=== PATIENT | male | born 1960 | race Caucasian/White ===

== ENCOUNTER 2018-06-13 09:50 | Emergency (ER) | payer MEDICARE, OTHER ==
--- NOTE | 2018-06-13 11:01 | ED ---
Fall HPI - General Chief Complaint: Fall Stated Complaint: Fall Time Seen by Provider: 06/13/18 10:03 Source: EMS, RN notes reviewed Mode of arrival: EMS - History of Present Illness Initial Comments: this is a 57-year-old male past medical history developmental delays previous [place] and depression who presents today for chief complaint of fall with caregiver. psychiatry teacher states that around 8:45 AM this morning, he came out of the bedroom bleeding right above right eyebrow. They saw a trail from the night stand to the doorway, and when they asked pt if he hit head on nightstand he said yes. Pt is able to answer yes and no questions, however at baseline does not formulate complete sentences. Caregiver stated that he was acting normal, trying to put on his shoes to go to his program for the day. Pt denied LOC, chest pain, dizziness prior to fall, headache, current dizziness, visual changes , nausea, vomiting, pain with EOM, muscle weakness or loss of sensation of extremities. Caregiver states that his gait and speech are normal and she notes no behavioral changes. EMS was called patient arrived in stable condition with laceration of the right orbit. remainder ROS negative. Caregiver denies anticoagulation use or coagulopathies. - Related Data Home Medications Medication Instructions Recorded Confirmed Bisoprolol-Hctz 5-6.25 mg [Ziac 1 tab PO DAILY 06/13/18 06/13/18 5-6.25] Diphenox-Atrop 2.5-0.025 mg 1 tab PO DAILY PRN 06/13/18 06/13/18 [Lomotil] FLUoxetine HCL [PROzac] 20 mg PO DAILY 06/13/18 06/13/18 FLUoxetine HCL [PROzac] 40 mg PO DAILY 06/13/18 06/13/18 risperiDONE 1 mg PO BID 06/13/18 06/13/18 Allergies Allergy/AdvReac Type Severity Reaction Status Date / Time No Known Allergies Allergy Verified 06/13/18 10:16 Review of Systems ROS Statement: Those systems with pertinent positive or pertinent negative responses have been documented in the HPI. ROS Other: All systems not noted in ROS Statement are negative. Constitutional: Denies: fever, chills Eyes: Denies: eye pain, vision change ENT: Denies: throat pain Respiratory: Denies: cough, dyspnea, wheezes, hemoptysis, stridor Cardiovascular: Denies: chest pain, palpitations Gastrointestinal: Denies: abdominal pain, nausea, vomiting, diarrhea, constipation Genitourinary: Denies: dysuria Musculoskeletal: Denies: back pain (no neck pain) Skin: Reports: as per HPI, lesions Neurological: Denies: headache, weakness, numbness, paresthesias, confusion, abnormal gait, vertigo Past Medical History Past Medical History: Unable to Obtain Additional Past Medical History / Comment(s): [place], Developmental delay since , depression. Pt combative at times. History of Any Multi-Drug Resistant Organisms: None Reported Past Surgical History: Unable to Obtain Past Psychological History: No Psychological Hx Reported Smoking Status: Unknown if ever smoked Past Alcohol Use History: None Reported Past Drug Use History: None Reported General Exam - General Exam Comments Initial Comments: General: The patient is awake and alert, in no distress, and does not appear acutely ill. Eye: +2mm pupils are equal, round and reactive to light, extra-ocular movements are intact. EOM intact, pt denies pain with EOM. No nystagmus. No conjugate gaze. There is normal conjunctiva bilaterally. No signs of icterus. Ears, nose, mouth and throat: There are moist mucous membranes and no oral lesions. Neck: The neck is supple, there is no tenderness or JVD. No midlines or paravertebral tenderness to palpation. Cardiovascular: There is a regular rate and rhythm. No murmur, rub or gallop is appreciated. Respiratory: Lungs are clear to auscultation, respirations are non-labored, breath sounds are equal. No wheezes, stridor, rales, or rhonchi. Musculoskeletal: Normal ROM, no tenderness. Strength 5/5 UE and LE equally bilaterally. Sensation intact of upper extremities and lower extremities equally bilaterally. Pulses equal bilaterally 2+. Neurological: A&O x 3. CN II-XII intact, There are no obvious motor or sensory deficits. Coordination appears grossly intact. Speech is normal.gait without ataxia. Skin: Skin is warm and dry and no rashes. No evidence of contusion or hematoma over forehead/over right orbit. Large 9m linear laceration superior to right orbit, full thickness laceration, no distruption of under muscle tissue or exposure of skull. No active bleeding. Psychiatric: Cooperative,following verbal commands memory intact to immediately, intermediate and termite treater helper recall. Able to follow simple verbal. Light touch sensation present over the face, chest, abdomen, back , UE bilaterally, and LE bilaterally. . No visible bulk atrophy, hypertrophy, fasciculations, or myoclonus of the UE or LE b/l. Full PROM in UE and LE b/l. Bilateral muscle strength 5/5 for the following muscles: deltoid, biceps, triceps, brachioradialis, wrist extensors/flexor, hip flexor, hip abductors/ adductors, hamstrings, quadriceps, feet dorsiflexors/plantar flexors. Coordinated and even demonstration of hand flip, toe tap b/l. +2 triceps, patellar, and Achilles DTR b/l. . Gait is coordinated and even in stride with tandem.. (-) pronator drift. No nuchal rigidity. (-) Brudzinskis and Kernig signs. Limitations: altered mental status Course Vital Signs 06/13/18 06/13/18 09:51 13:23 Temperature 97.2 F L 97.6 F Pulse Rate 108 H 98 Respiratory 20 18 Rate Blood Pressure 140/82 123/79 O2 Sat by Pulse 97 96 Oximetry Procedures - Laceration Laceration #1 Consent Obtained: verbal consent Time Out Performed: Yes Indication: laceration Site: face (superior to right orbit) Size (cm): 9 Description: linear Depth: simple, single layer Anesthetic Used: lidocaine 1% Anesthesia Technique: local infiltration Pre-repair: wound explored, irrigated extensively, deep structures intact Size of Sutures: 5-0 Technique: simple, interrupted Patient Tolerated Procedure: well, no complications Medical Decision Making - Medical Decision Making CT orbit and brain wo contrast obtained (-) for fx or acute process. Pt neurological exam unremarkable. No evidence of focal neurological deficits and caregivers says he is acting like himself. Case discussed in detail with Dr. Rai laceration evaluated by myself and Dr. Rai, no evidence of exposure of underlying structures or FB. Wound approximately with 5.0 nylon suture 10 total using sterile technique after extensive irrigation and exploration. Pt VS stable. At this time we feel pt is stable for d/c, no evidence of acute intracranial process at this time. Pt was discharged in stable condition with caregiver instruction to return for any changes in behavior, gait, facial expression, muscles tone or other worsening or change in symptoms. In addition caregiver and patient was educated on signs and symptoms of infection instructed to return to the emergency department if these develop. Patient discharged in stable condition with instruction for f/u in 5 days for suture removal. Disposition Clinical Impression: Contusion of scalp, Laceration of face Disposition: HOME SELF-CARE Condition: Good Instructions: Care For Your Stitches (ED), Laceration (ED), Fall Prevention for Older Adults (ED) Additional Instructions: Please use over the counter pain medication as discussed, as needed for pain. Please follow-up in 5 days for suture removal. Please return to emergency room if the symptoms increase or worsen or for any other concerns as discussed. Is patient prescribed a controlled substance at d/c from ED?: No Referrals: Du Pierce MD [Primary Care Provider] - 1-2 days Time of Disposition: 13:05
--- NOTE | 2018-06-13 11:50 | CT ---
EXAMINATION TYPE: CT brain wo con, CT orbits wo con DATE OF EXAM: 06/13/2018 COMPARISON: None HISTORY: 57-year-old male with pain after Fall TECHNIQUE: Examination was done in axial plane without intravenous contrast. Coronal and sagittal r econstructions performed. High-resolution axial scanning through the orbits with coronal reconstructi ons. CT DLP: 1064.30 (accession [id number]), 872.10 (accession [id number]) mGycm Automated exposure control for dose reduction was used. FINDINGS: Head: There is no evidence of acute intracranial hemorrhage, acute ischemic changes, mass, mass-effect, or extra-axial fluid collection. There is no effacement of cerebral sulci or basal subarachnoid cister ns. There is no hydrocephalus. There is no midline shift. Daley-white matter distinction is preserv ed. Mild age-related supratentorial volume loss. Rightward nasal septal deviation. Trace mucosal thickening ethmoid air cells. Mastoid air cells are p neumatized. There may be a mild left frontal soft tissue contusion. There is a laceration along the right supraor bital and right frontal region. Orbits: The paranasal sinuses, orbits and globes, nasal bone, visualized facial bones, zygomatic arches, pter ygoid plates appear intact. TMJs are intact. IMPRESSION (head and orbits): 1. No acute intracranial abnormality seen. 2. Mild left frontal scalp contusion and additional laceration along the right supraorbital and right frontal region. 3. No underlying acute orbital fracture seen. No facial bone fracture identified. 3. Trace mucosal thickening ethmoid air cells and rightward nasal septal deviation.
[2018-06-13] MEDS ORDERED: LIDOCAINE 1% INJ 10MG/ML (20 ML MDV) SQ ONE (12:03)
[2018-06-13] MEDS ORDERED: DIPH,PERTUS(ACELL)TETVAC-LF 0.5 ML VIAL IM ONE (12:37)
[2018-06-13 13:24] VITALS: BP 123/79; PULSE 98; RESP 18; TEMP 97.6
== END 2018-06-13 13:24 | disposition home or self-care (01) ==
LOC: EC 09:50 → EEVIPCON 09:50 → EC 13:24
DX: S05.41XA Penetrating wound of orbit with or without foreign body, right eye, initial encounter (principal); S00.03XA Contusion of scalp, initial encounter; I25.2 Old myocardial infarction; F32.9 Major depressive disorder, single episode, unspecified; Z23 Encounter for immunization; Z79.899 Other long term (current) drug therapy; W01.198A Fall on same level from slipping, tripping and stumbling with subsequent striking against other object, initial encounter; Y92.003 Bedroom of unspecified non-institutional (private) residence as the place of occurrence of the external cause
CPT/HCPCS: 70450; 70480; 90715; 99284; 12015; 90471; J2001

== ENCOUNTER 2018-12-20 10:53 | Inpatient (IN) | payer MEDICARE, OTHER ==
[2018-12-20] MEDS ORDERED: SODIUM CHLORIDE 0.9% 1,000 ML IV STA ×2 (11:09→13:05)
[2018-12-20] MEDS ORDERED: ONDANSETRON 4 MG/2 ML VIAL IVP STA (11:09)
--- NOTE | 2018-12-20 11:34 | ED ---
General Adult HPI <Arturo Reich - Last Filed: 12/20/18 13:04> - General Source: patient, EMS, RN notes reviewed Mode of arrival: EMS Limitations: no limitations <Richard Bower - Last Filed: 12/20/18 13:58> - General Chief complaint: Nausea/Vomiting/Diarrhea Stated complaint: Nausea, vomiting Time Seen by Provider: 12/20/18 11:04 - History of Present Illness Initial comments: 58-year-old male with a past medical history of developmental delay, [place] presents to the emergency department for a chief complaint of nausea vomiting and diarrhea 5 hours. Patient has had about 3 episodes of vomiting and 2 episodes of diarrhea.Staff states patient was throwing up "brown chunks." Patient lives at a retirement. Patient denies any nausea at this time. He denies any abdominal pain. Patient was given 4 mg of Zofran in the ambulance. He is at baseline for mentation. No fevers or chills. Patient has no other complaints at this time including shortness of breath, chest pain, abdominal pain, headache, or visual changes. (Richard Bower) - Related Data Home Medications Medication Instructions Recorded Confirmed FLUoxetine HCL [PROzac] 20 mg PO HS 06/13/18 12/20/18 FLUoxetine HCL [PROzac] 40 mg PO DAILY 06/13/18 12/20/18 risperiDONE 1 mg PO BID 06/13/18 12/20/18 Aspirin 81 mg PO DAILY 12/20/18 12/20/18 Dicyclomine [Bentyl] 10 mg PO BID 12/20/18 12/20/18 Allergies Allergy/AdvReac Type Severity Reaction Status Date / Time No Known Allergies Allergy Verified 12/20/18 11:17 Review of Systems ROS Other: All systems not noted in ROS Statement are negative. <Arturo Reich - Last Filed: 12/20/18 13:04> ROS Other: All systems not noted in ROS Statement are negative. <Richard Bower - Last Filed: 12/20/18 13:58> ROS Statement: Those systems with pertinent positive or pertinent negative responses have been documented in the HPI. Past Medical History Past Medical History: Unable to Obtain, Myocardial Infarction ([place]) Additional Past Medical History / Comment(s): [place], Developmental delay since , depression. Pt combative at times. History of Any Multi-Drug Resistant Organisms: None Reported Past Surgical History: No Surgical Hx Reported Additional Past Surgical History / Comment(s): cataract surgery Past Psychological History: No Psychological Hx Reported, Depression Smoking Status: Never smoker Past Alcohol Use History: None Reported Past Drug Use History: None Reported <Richard Bower - Last Filed: 12/20/18 13:58> General Exam Limitations: no limitations General appearance: alert, in no apparent distress Head exam: Present: atraumatic, normocephalic, normal inspection Eye exam: Present: normal appearance, PERRL, EOMI. Absent: scleral icterus, conjunctival injection, periorbital swelling ENT exam: Present: normal exam, mucous membranes moist, normal external ear exam Neck exam: Present: normal inspection, full ROM. Absent: tenderness, meningismus, lymphadenopathy Respiratory exam: Present: normal lung sounds bilaterally. Absent: respiratory distress, wheezes, rales, rhonchi, stridor Cardiovascular Exam: Present: regular rate, normal rhythm, normal heart sounds. Absent: systolic murmur, diastolic murmur, rubs, gallop, clicks GI/Abdominal exam: Present: soft, normal bowel sounds. Absent: distended, tenderness (no tenderness to light or deep palpation), guarding, rebound, rigid Neurological exam: Present: alert, CN II-XII intact. Absent: oriented X3 ( oriented x 1, baseline) Psychiatric exam: Present: normal affect, normal mood <Richard Bower P - Last Filed: 12/20/18 13:58> Vital Signs 12/20/18 10:55 Temperature 98.1 F Pulse Rate 68 Respiratory 18 Rate Blood Pressure 121/80 O2 Sat by Pulse 96 Oximetry Medical Decision Making - Lab Data Result diagrams: 12/20/18 11:36 12/20/18 11:36 <Arturo Reich - Last Filed: 12/20/18 13:04> - Lab Data Result diagrams: 12/20/18 11:36 12/20/18 11:36 <Richard Bower - Last Filed: 12/20/18 13:58> - Medical Decision Making Case discussed with practitioner Mariposa. Chart reviewed. Case also discussed with Dr. Espinoza, covering for Dr. Bazzi, who covers for Dr. Ying , who will admit. (Arturo Reich) 58-year-old male presents for nausea vomiting and diarrhea 6 hours. Patient presents from a retirement. On exam patient is well-appearing. No abdominal tenderness noted to palpation. Patient has not vomited or had diarrhea while here in the emergency department. However patient does have a sodium of 124 and is hyponatremic. IV fluids started. Patient will be admitted for further management. (Richard Bower) - Lab Data Lab Results 12/20/18 12/20/18 Range/Units 11:36 11:36 WBC 11.3 H (3.8-10.6) k/uL RBC 4.24 L (4.30-5.90) m/uL Hgb 12.7 L (13.0-17.5) gm/dL Hct 36.4 L (39.0-53.0) % MCV 85.8 (80.0-100.0) fL MCH 30.1 (25.0-35.0) pg MCHC 35.0 (31.0-37.0) g/dL RDW 13.5 (11.5-15.5) % Plt Count 240 (150-450) k/uL Neutrophils % 93 % Lymphocytes % 3 % Monocytes % 3 % Eosinophils % 0 % Basophils % 0 % Neutrophils # 10.5 H (1.3-7.7) k/uL Lymphocytes # 0.3 L (1.0-4.8) k/uL Monocytes # 0.4 (0-1.0) k/uL Eosinophils # 0.0 (0-0.7) k/uL Basophils # 0.0 (0-0.2) k/uL Sodium 124 L (137-145) mmol/L Potassium 3.8 (3.5-5.1) mmol/L Chloride 88 L (98-107) mmol/L Carbon Dioxide 23 (22-30) mmol/L Anion Gap 13 mmol/L BUN 7 L (9-20) mg/dL Creatinine 0.65 L (0.66-1.25) mg/dL Est GFR (CKD-EPI)AfAm >90 (>60 ml/min/1.73 sqM) Est GFR (CKD-EPI)NonAf >90 (>60 ml/min/1.73 sqM) Glucose 103 H (74-99) mg/dL Calcium 8.3 L (8.4-10.2) mg/dL Total Bilirubin 0.9 (0.2-1.3) mg/dL AST 26 (17-59) U/L ALT 38 (21-72) U/L Alkaline Phosphatase 82 (38-126) U/L Total Protein 6.3 (6.3-8.2) g/dL Albumin 3.5 (3.5-5.0) g/dL Amylase 101 (30-110) U/L Lipase 109 (23-300) U/L Disposition <Arturo Reich - Last Filed: 12/20/18 13:04> Time of Disposition: 13:57 <Richard Bower - Last Filed: 12/20/18 13:58> Clinical Impression: Hyponatremia, Nausea vomiting and diarrhea Disposition: ADMITTED IP TO THIS HOSP Condition: Fair Referrals: Du Pierce MD [Primary Care Provider] - 1-2 days
[2018-12-20 11:56] LABS: Basophils % (A) 0 %; Eosinophils % (A) 0 %; HCT 36.4 % (39.0-53.0); HGB 12.7 gm/dL (13.0-17.5); Lymphocytes # (A) 0.3 k/uL (1.0-4.8); Lymphocytes % (A) 3 %; MCH 30.1 pg (25.0-35.0); MCV 85.8 fL (80.0-100.0); Mean Platelet Volume 6.4; Monocytes # (A) 0.4 k/uL (0-1.0); Monocytes % (A) 3 %; Neutrophils # (A) 10.5 k/uL (1.3-7.7); Neutrophils % (A) 93 %; Platelet Count 240 k/uL (150-450); RBC 4.24 m/uL (4.30-5.90); RDW 13.5 % (11.5-15.5); WBC 11.3 k/uL (3.8-10.6)
--- NOTE | 2018-12-20 12:02 | XR ---
EXAMINATION TYPE: XR abdomen 2V DATE OF EXAM: 12/20/2018 COMPARISON: NONE HISTORY: Pain TECHNIQUE: Single supine KUB image of the abdomen is obtained FINDINGS: Small bowel demonstrates no evidence for dilatation or air fluid levels. Gas and fecal material is seen in non-distended colon. No convincing evidence for pneumoperitoneum. No unusual calcifications. The lung bases are clear. The osseous structures are intact. IMPRESSION: 1. Overall nonobstructive bowel gas pattern.
[2018-12-20 12:08] LABS: ALT 38 U/L (21-72); AST 26 U/L (17-59); Albumin 3.5 g/dL (3.5-5.0); Alkaline Phosphatase 82 U/L (38-126); Amylase 101 U/L (30-110); Anion Gap 13 mmol/L; Blood Urea Nitrogen 7 mg/dL (9-20); Calcium 8.3 mg/dL (8.4-10.2); Carbon Dioxide 23 mmol/L (22-30); Chloride 88 mmol/L (98-107); Glucose 103 mg/dL (74-99); Lipase 109 U/L (23-300); Potassium 3.8 mmol/L (3.5-5.1); Sodium 124 mmol/L (137-145); Total Bilirubin 0.9 mg/dL (0.2-1.3); Total Protein 6.3 g/dL (6.3-8.2)
[2018-12-20] MEDS ORDERED: NALOXONE 0.4 MG/ML 1 ML VIAL IV PRN (13:53)
[2018-12-20] MEDS ORDERED: ONDANSETRON 4 MG/2 ML VIAL IVP PRN (13:53)
[2018-12-20] MEDS ORDERED: KETOROLAC 30 MG/ML 1 ML VIAL IVP PRN (13:53)
[2018-12-20 14:41] LABS: Appearance,Urine Clear (Clear); Bilirubin,Urine Negative (Negative); Blood,Urine Trace (Negative); Color,Urine Colorless; Glucose,Urine (UA) Negative (Negative); Ketones,Urine 1+ (Negative); Leukocyte Esterase,Urine Negative (Negative); Nitrite,Urine Negative (Negative); PH, Urine 6.5 (5.0-8.0); Protein,Urine Negative (Negative); RBC,Urine 1 /hpf (0-5); Specific Gravity,Urine 1.003 (1.001-1.035); Urobilinogen,Urine <2.0 mg/dL (<2.0); WBC,Urine <1 /hpf (0-5)
[2018-12-20] MEDS ORDERED: LOPERAMIDE 2 MG CAP PO PRN (14:54)
--- NOTE | 2018-12-20 14:56 | P.HPIM ---
History of Present Illness H&P Date: 12/20/18 Chief Complaint: Hyponatremia 58-year-old male with PMH of developmental delay, nonverbal, CAD and depression presents to the ED from his retirement. Patient is nonverbal, majority of history of physical obtained from the chart. Apparently, patient has been experiencing nausea, vomiting and diarrhea for the past 5 hours. There reports of at least 3 episodes of vomiting and 2 episodes of diarrhea. In the ED, CBC showed a mild leukocytosis of 11.3 and hemoglobin of 12.7. CMP showed a sodium of 124, chloride of 88. Urinalysis shows trace ketones and blood. Abdominal x-rays negative for acute process. Patient is admitted for hyponatremia, dehydration. Review of Systems All systems: negative Past Medical History Past Medical History: Unable to Obtain, Myocardial Infarction ([place]) Additional Past Medical History / Comment(s): [place], Developmental delay since , depression. Pt combative at times. History of Any Multi-Drug Resistant Organisms: None Reported Past Surgical History: No Surgical Hx Reported Additional Past Surgical History / Comment(s): cataract surgery Past Psychological History: No Psychological Hx Reported, Depression Smoking Status: Never smoker Past Alcohol Use History: None Reported Past Drug Use History: None Reported Medications and Allergies Home Medications Medication Instructions Recorded Confirmed Type FLUoxetine HCL [PROzac] 20 mg PO HS 06/13/18 12/20/18 History FLUoxetine HCL [PROzac] 40 mg PO DAILY 06/13/18 12/20/18 History risperiDONE 1 mg PO BID 06/13/18 12/20/18 History Aspirin 81 mg PO DAILY 12/20/18 12/20/18 History Dicyclomine [Bentyl] 10 mg PO BID 12/20/18 12/20/18 History Allergies Allergy/AdvReac Type Severity Reaction Status Date / Time No Known Allergies Allergy Verified 12/20/18 11:17 Physical Exam Vitals: Vital Signs Temp Pulse Resp BP Pulse Ox 12/20/18 10:55 98.1 F 68 18 121/80 96 Intake and Output 12/19/18 12/20/18 12/20/18 22:59 06:59 14:59 Other: Weight 86.183 kg General: [non toxic], [no distress], [appears at stated age] Derm: [warm], [dry] Head: [atraumatic], [normocephalic], [symmetric] Eyes: [EOMI], [no lid lag], [anicteric sclera] Mouth: [no lip lesion], [mucus membranes moist] Cardiovascular: [S1S2 reg], [no murmur], [positive DP pulse bilateral] Lungs: [CTA bilateral], [no rhonchi, no rales] , [no accessory muscle use] Abdominal: [soft], [ nontender to palpation], [no guarding], [no appreciable organomegaly] Ext: [no gross muscle atrophy], [no edema], [no contractures] Neuro: [no focal neuro deficits] Psych: [Unable to determine] Results CBC & Chem 7: 12/20/18 11:36 12/20/18 11:36 Labs: Abnormal Lab Results - Last 24 Hours (Table) 12/20/18 12/20/18 12/20/18 Range/Units 11:36 11:36 14:08 WBC 11.3 H (3.8-10.6) k/uL RBC 4.24 L (4.30-5.90) m/uL Hgb 12.7 L (13.0-17.5) gm/dL Hct 36.4 L (39.0-53.0) % Neutrophils # 10.5 H (1.3-7.7) k/uL Lymphocytes # 0.3 L (1.0-4.8) k/uL Sodium 124 L (137-145) mmol/L Chloride 88 L (98-107) mmol/L BUN 7 L (9-20) mg/dL Creatinine 0.65 L (0.66-1.25) mg/dL Glucose 103 H (74-99) mg/dL Calcium 8.3 L (8.4-10.2) mg/dL Urine Ketones 1+ H (Negative) Urine Blood Trace H (Negative) Thrombosis Risk Factor Assmnt - Choose All That Apply Any of the Below Risk Factors Present?: Yes Each Factor Represents 1 point: Age 41-60 years Other Risk Factors: Yes Each Risk Factor Represents 2 Points: Patient confined to bed Thrombosis Risk Factor Assessment Total Risk Factor Score: 3 Thrombosis Risk Factor Assessment Level: Moderate Risk Assessment and Plan Assessment: Assessment and Plan 1. Hyponatremia 2. Gastroenteritis 3. Leukocytosis 4. Anemia 5. Developmental delay 1. Sodium is 124 on admission, likely secondary to dehydration. Start normal saline at 75 mL per hour. Consider urine osmolality and urine electrolytes if not improved tomorrow. Repeat BMP in the AM, 2. Resident of skilled nursing. Likely viral, self-limiting. Imodium for diarrhea. Zofran for nausea or vomiting. Bentyl for abdominal cramps. No indication for antibiotics. 3. Likely secondary to gastroenteritis. We will repeat a CBC in the morning. 4. Hemoglobin 12.7. Stable. We will repeat a CBC in the morning. 5. Patient lives in a retirement. Continue risperidone 1 mg by mouth twice a day. Follow-up social work recommendations. Patient admitted for gastroenteritis, hyponatremia. He is pending clinical improvement. Likely discharge in 1-2 days.
[2018-12-20 17:48] LABS: Anion Gap 10 mmol/L; Blood Urea Nitrogen 6 mg/dL (9-20); Calcium 8.5 mg/dL (8.4-10.2); Carbon Dioxide 21 mmol/L (22-30); Chloride 96 mmol/L (98-107); Glucose 120 mg/dL (74-99); Sodium 127 mmol/L (137-145)
[2018-12-20] MEDS: SODIUM CHLORIDE 0.9% 1,000 ML IV SCH (18:01)
[2018-12-20 18:17] VITALS: RESP 16
[2018-12-20] MEDS ORDERED: FLUoxetine HCL 20 MG CAP PO SCH (21:00)
[2018-12-20] MEDS: risperiDONE 1 MG TAB PO SCH (22:19)
[2018-12-20] MEDS: HEPARIN SODIUM,PORCINE 5,000 UNIT/ML 1 ML VIAL SQ SCH (22:19)
[2018-12-20] MEDS: DICYCLOMINE 10 MG CAP PO SCH (22:19)
[2018-12-20 22:30] LABS: Anion Gap 9 mmol/L; Blood Urea Nitrogen 6 mg/dL (9-20); Calcium 8.6 mg/dL (8.4-10.2); Carbon Dioxide 23 mmol/L (22-30); Chloride 99 mmol/L (98-107); Glucose 106 mg/dL (74-99); Potassium 4.2 mmol/L (3.5-5.1); Sodium 131 mmol/L (137-145)
[2018-12-21] MEDS: SODIUM CHLORIDE 0.9% 1,000 ML IV SCH ×3 (00:45→17:00)
[2018-12-21 01:48] LABS: Anion Gap 6 mmol/L; Blood Urea Nitrogen 6 mg/dL (9-20); Calcium 8.6 mg/dL (8.4-10.2); Carbon Dioxide 25 mmol/L (22-30); Chloride 102 mmol/L (98-107); Glucose 94 mg/dL (74-99); Sodium 133 mmol/L (137-145)
[2018-12-21] MEDS: DICYCLOMINE 10 MG CAP PO SCH (08:08)
[2018-12-21] MEDS: risperiDONE 1 MG TAB PO SCH (08:08)
[2018-12-21] MEDS: HEPARIN SODIUM,PORCINE 5,000 UNIT/ML 1 ML VIAL SQ SCH (08:09)
[2018-12-21] MEDS ORDERED: ASPIRIN 81 MG PO SCH (09:00)
[2018-12-21] MEDS ORDERED: FLUoxetine HCL 20 MG CAP PO SCH (09:00)
--- NOTE | 2018-12-21 09:01 | XR ---
EXAMINATION TYPE: XR chest 1V DATE OF EXAM: 12/21/2018 COMPARISON: NONE HISTORY: Leukocytosis TECHNIQUE: Single frontal view of the chest is obtained. FINDINGS: Patient is rotated. Lung volumes are low. No evident pneumothorax or pleural effusion. Hea rt size may be accentuated by technique. Patchy basilar density is present. IMPRESSION: Possible cardiomegaly, probable basilar atelectasis, correlate to exclude pneumonia, fol low-up PA and lateral chest x-ray recommended for better evaluation.
[2018-12-21 09:12] LABS: Basophils % (A) 0 %; Eosinophils % (A) 0 %; HCT 39.6 % (39.0-53.0); HGB 13.6 gm/dL (13.0-17.5); Lymphocytes # (A) 0.5 k/uL (1.0-4.8); Lymphocytes % (A) 8 %; MCH 30.2 pg (25.0-35.0); MCHC 34.3 g/dL (31.0-37.0); Mean Platelet Volume 6.9; Monocytes # (A) 0.3 k/uL (0-1.0); Monocytes % (A) 6 %; Neutrophils # (A) 4.8 k/uL (1.3-7.7); Neutrophils % (A) 85 %; Platelet Count 244 k/uL (150-450); WBC 5.7 k/uL (3.8-10.6)
[2018-12-21 14:57] VITALS: BP 109/72; PULSE 92; TEMP 97.8
--- NOTE | 2018-12-21 15:28 | P.DS ---
Providers Date of admission: 12/20/18 13:53 Expected date of discharge: 12/21/18 Attending physician: Paul Zamora MD Primary care physician: [facility] Course: 58-year-old male with PMH of developmental delay, nonverbal, CAD and depression presents to the ED from his senior care. Patient is nonverbal, majority of history of physical obtained from the chart. Apparently, patient has been experiencing nausea, vomiting and diarrhea for the past 5 hours. There reports of at least 3 episodes of vomiting and 2 episodes of diarrhea. In the ED, CBC showed a mild leukocytosis of 11.3 and hemoglobin of 12.7. CMP showed a sodium of 124, chloride of 88. Urinalysis shows trace ketones and blood. Abdominal x-rays negative for acute process. Patient is admitted for hyponatremia, dehydration. Patient was hydrated overnight with normal saline at 75 mL per hour. His sodium on admission was 124 which trended up to 133 overnight. There was no reports of nausea, vomiting or diarrhea. Patient was seen and examined prior to discharge. No acute events overnight. Patient is able to tolerate his diet well today. He denies any nausea, vomiting or abdominal pain. No chest pain, shortness of breath or palpitations. He is more vocal today using 1 or 2 word sentences. General: [non toxic], [no distress], [appears at stated age] Derm: [warm], [dry] Head: [atraumatic], [normocephalic], [symmetric] Eyes: [EOMI], [no lid lag], [anicteric sclera] Mouth: [no lip lesion], [mucus membranes moist] Cardiovascular: [S1S2 reg], [no murmur], [positive DP pulse bilateral] Lungs: [CTA bilateral], [no rhonchi, no rales] , [no accessory muscle use] Abdominal: [soft], [ nontender to palpation], [no guarding], [no appreciable organomegaly] Ext: [no gross muscle atrophy], [no edema], [no contractures] Neuro: [no focal neuro deficits] Psych: [Unable to determine] Assessment and Plan 1. Hyponatremia 2. Gastroenteritis 3. Leukocytosis 4. Anemia 5. Developmental delay 1. Sodium is 124 on admission, likely secondary to dehydration. Na 133 this morning, will order follow up. Continue normal saline at 75 mL per hour and encourage PO hydration. 2. Resident of long term. Likely viral, self-limiting. Imodium for diarrhea. Zofran for nausea or vomiting. Bentyl for abdominal cramps. No indication for antibiotics. 3. Likely secondary to gastroenteritis. We will repeat a CBC in the morning. 4. Hemoglobin 12.7 to 13.6. Stable. We will repeat a CBC in the morning. 5. Patient lives in a senior care. Continue risperidone 1 mg by mouth twice a day. Follow-up social work recommendations. Patient admitted for gastroenteritis, hyponatremia. Possible discharge today if Na improved. Pertinent Studies: Chest x-ray KUB Patient Condition at Discharge: Fair Plan - Discharge Summary Discharge Rx Participant: No New Discharge Prescriptions: Continue risperiDONE 1 mg PO BID FLUoxetine HCL [PROzac] 20 mg PO HS FLUoxetine HCL [PROzac] 40 mg PO DAILY Dicyclomine [Bentyl] 10 mg PO BID Aspirin 81 mg PO DAILY Discharge Medication List FLUoxetine HCL [PROzac] 20 mg PO HS 06/13/18 [History] FLUoxetine HCL [PROzac] 40 mg PO DAILY 06/13/18 [History] risperiDONE 1 mg PO BID 06/13/18 [History] Aspirin 81 mg PO DAILY 12/20/18 [History] Dicyclomine [Bentyl] 10 mg PO BID 12/20/18 [History] Follow up Appointment(s)/Referral(s): Du Pierce MD [Primary Care Provider] - 1-2 days Activity/Diet/Wound Care/Special Instructions: Please update Marj Goel when patient is discharged. Marj stated [facility] should be able to transport patient back, but if they cannot she will be able to transport back. Discharge Disposition: HOME SELF-CARE
--- NOTE | 2018-12-21 15:39 | XR ---
EXAMINATION TYPE: XR chest 2V DATE OF EXAM: 12/21/2018 COMPARISON: Prior chest x-ray same dated earlier time HISTORY: Cough TECHNIQUE: Frontal and lateral views of the chest are obtained. FINDINGS: Lung volumes are low. Patient is rotated. Minimal patchy basilar density suspected on the right. There is no focal air space opacity, pleural effusion, or pneumothorax seen. The cardiac silh ouette size is within normal limits. The osseous structures are intact. IMPRESSION: Possible basilar atelectasis, correlate to exclude pneumonia.
[2018-12-21 16:39] LABS: Anion Gap 7 mmol/L; Blood Urea Nitrogen 11 mg/dL (9-20); Calcium 8.7 mg/dL (8.4-10.2); Carbon Dioxide 26 mmol/L (22-30); Chloride 106 mmol/L (98-107); Glucose 80 mg/dL (74-99); Potassium 4.4 mmol/L (3.5-5.1); Sodium 139 mmol/L (137-145)
== END 2018-12-21 19:01 | disposition home or self-care (01) | DRG 641 ==
LOC: EC 10:53 → 4MS4W 13:53
PROVIDERS: ADMIT Internal Medicine; ATTEND Internal Medicine
DX: E87.1 Hypo-osmolality and hyponatremia (principal); E86.0 Dehydration; D64.9 Anemia, unspecified; I25.10 Atherosclerotic heart disease of native coronary artery without angina pectoris; I25.2 Old myocardial infarction; K52.9 Noninfective gastroenteritis and colitis, unspecified; Z79.82 Long term (current) use of aspirin; Z79.899 Other long term (current) drug therapy; D72.829 Elevated white blood cell count, unspecified
CPT/HCPCS: 36415; 71045; 71046; 74019; 80048; 80053; 81001; 82150; 83690; 85025; 96360; 96361; 99285

== ENCOUNTER 2019-02-28 15:21 | Observation (INO) | payer MEDICARE, OTHER ==
[2019-02-28] MEDS ORDERED: ONDANSETRON 4 MG/2 ML VIAL IVP STA (15:49)
[2019-02-28] MEDS ORDERED: SODIUM CHLORIDE 0.9% 500 ML 500 ML IV STA (15:49)
[2019-02-28] MEDS ORDERED: SODIUM CHLORIDE 0.9% 1,000 ML IV ONE ×2 (16:12→17:09)
--- NOTE | 2019-02-28 16:12 | ED ---
General Adult HPI - General Chief complaint: Nausea/Vomiting/Diarrhea Stated complaint: UPPER GI BLEED Time Seen by Provider: 02/28/19 15:30 Source: patient, EMS, RN notes reviewed Mode of arrival: EMS Limitations: no limitations - History of Present Illness Initial comments: This is a 58-year-old male who presents emergency Department for vomiting 2. According to the staff at his facility it was coffee ground emesis. Patient is unable to give any history because he has severe developmental delay. No one came with the patient and we have no further history. Patient does not appear in any distress. - Related Data Home Medications Medication Instructions Recorded Confirmed FLUoxetine HCL [PROzac] 20 mg PO HS 06/13/18 02/28/19 FLUoxetine HCL [PROzac] 40 mg PO DAILY 06/13/18 02/28/19 risperiDONE 1 mg PO BID 06/13/18 02/28/19 Aspirin 81 mg PO DAILY 12/20/18 02/28/19 Dicyclomine [Bentyl] 10 mg PO BID 12/20/18 02/28/19 Allergies Allergy/AdvReac Type Severity Reaction Status Date / Time No Known Allergies Allergy Verified 02/28/19 15:44 Review of Systems ROS Statement: Those systems with pertinent positive or pertinent negative responses have been documented in the HPI. ROS Other: All systems not noted in ROS Statement are negative. Past Medical History Past Medical History: Myocardial Infarction ([place]) Additional Past Medical History / Comment(s): [place], Developmental delay since , depression. Pt combative at times.IBS Last Myocardial Infarction Date:: unknown History of Any Multi-Drug Resistant Organisms: None Reported Past Surgical History: No Surgical Hx Reported Additional Past Surgical History / Comment(s): cataract surgery Past Anesthesia/Blood Transfusion Reactions: No Reported Reaction Past Psychological History: Depression Smoking Status: Never smoker Past Alcohol Use History: None Reported Past Drug Use History: None Reported - Past Family History Father History Unknown: Yes General Exam - General Exam Comments Initial Comments: GENERAL: Patient is well-developed and well-nourished. Patient is nontoxic and well- hydrated and is in no acute distress. ENT: Neck is soft and supple. No significant lymphadenopathy is noted. Oropharynx is clear. Moist mucous membranes. Neck has full range of motion without eliciting any pain. EYES: The sclera were anicteric and conjunctiva were pink and moist. Extraocular movements were intact and pupils were equal round and reactive to light. Eyelids were unremarkable. PULMONARY: Unlabored respirations. Good breath sounds bilaterally. No audible rales rhonchi or wheezing was noted. CARDIOVASCULAR: Patient is tachycardic. At 110 bpm ABDOMEN: Soft and nontender with normal bowel sounds. No palpable organomegaly was noted. There is no palpable pulsatile mass. SKIN: Skin is clear with no lesions or rashes and otherwise unremarkable. NEUROLOGIC: Patient is alert and oriented unable to assess orientation secondary. 2 is to lay however EMS stated this was his baseline. MUSCULOSKELETAL: Normal extremities with adequate strength and full range of motion. No lower extremity swelling or edema. No calf tenderness. LYMPHATICS: No significant lymphadenopathy is noted PSYCHIATRIC: Unable to evaluate Limitations: no limitations Course Vital Signs 02/28/19 15:22 Temperature 98.5 F Pulse Rate 110 H Respiratory 18 Rate Blood Pressure 116/86 O2 Sat by Pulse 99 Oximetry Medical Decision Making - Medical Decision Making EKG shows sinus tachycardia at 113 bpm NE interval 252 QRS is 80 QT interval is 298 QTC is 408. Patient's EKG shows diffuse ST segment depression in the inferior lead as well as obese 3 through V6 patient also has some T-wave inversions inferiorly as well as the [address] Bazzi agreed to admit the patient admitted the patient I consult to GI and cardiology. - Lab Data Result diagrams: 02/28/19 16:23 02/28/19 16:23 Lab Results 02/28/19 02/28/19 02/28/19 Range/Units 16:23 16:23 16:23 WBC 10.0 (3.8-10.6) k/uL RBC 4.83 (4.30-5.90) m/uL Hgb 14.2 (13.0-17.5) gm/dL Hct 42.7 (39.0-53.0) % MCV 88.3 (80.0-100.0) fL MCH 29.4 (25.0-35.0) pg MCHC 33.3 (31.0-37.0) g/dL RDW 13.3 (11.5-15.5) % Plt Count 281 (150-450) k/uL Neutrophils % 92 % Lymphocytes % 3 % Monocytes % 4 % Eosinophils % 1 % Basophils % 0 % Neutrophils # 9.1 H (1.3-7.7) k/uL Lymphocytes # 0.3 L (1.0-4.8) k/uL Monocytes # 0.4 (0-1.0) k/uL Eosinophils # 0.1 (0-0.7) k/uL Basophils # 0.0 (0-0.2) k/uL PT 10.5 (9.0-12.0) sec INR 1.0 (<1.2) APTT 26.0 (22.0-30.0) sec Sodium 136 L (137-145) mmol/L Potassium 4.3 (3.5-5.1) mmol/L Chloride 105 (98-107) mmol/L Carbon Dioxide 21 L (22-30) mmol/L Anion Gap 10 mmol/L BUN 18 (9-20) mg/dL Creatinine 0.88 (0.66-1.25) mg/dL Est GFR (CKD-EPI)AfAm >90 (>60 ml/min/1.73 sqM) Est GFR (CKD-EPI)NonAf >90 (>60 ml/min/1.73 sqM) Glucose 112 H (74-99) mg/dL Calcium 9.4 (8.4-10.2) mg/dL Total Bilirubin 0.9 (0.2-1.3) mg/dL AST 30 (17-59) U/L ALT 47 (21-72) U/L Alkaline Phosphatase 91 (38-126) U/L Total Protein 7.3 (6.3-8.2) g/dL Albumin 4.3 (3.5-5.0) g/dL Lipase 152 (23-300) U/L Disposition Clinical Impression: Upper GI bleed, ST segment abnormality Disposition: ADMITTED IP TO THIS [facility] Referrals: Du Pierce MD [Primary Care Provider] - 1-2 days Time of Disposition: 17:08
[2019-02-28 16:33] LABS: Basophils % (A) 0 %; Eosinophils # (A) 0.1 k/uL (0-0.7); Eosinophils % (A) 1 %; HCT 42.7 % (39.0-53.0); HGB 14.2 gm/dL (13.0-17.5); Lymphocytes # (A) 0.3 k/uL (1.0-4.8); Lymphocytes % (A) 3 %; MCH 29.4 pg (25.0-35.0); MCHC 33.3 g/dL (31.0-37.0); MCV 88.3 fL (80.0-100.0); Mean Platelet Volume 6.7; Monocytes # (A) 0.4 k/uL (0-1.0); Monocytes % (A) 4 %; Neutrophils # (A) 9.1 k/uL (1.3-7.7); Neutrophils % (A) 92 %; Platelet Count 281 k/uL (150-450); RBC 4.83 m/uL (4.30-5.90); RDW 13.3 % (11.5-15.5)
[2019-02-28 16:41] LABS: Prothrombin Time 10.5 sec (9.0-12.0)
[2019-02-28 16:43] LABS: ALT 47 U/L (21-72); AST 30 U/L (17-59); Albumin 4.3 g/dL (3.5-5.0); Alkaline Phosphatase 91 U/L (38-126); Anion Gap 10 mmol/L; Blood Urea Nitrogen 18 mg/dL (9-20); Calcium 9.4 mg/dL (8.4-10.2); Carbon Dioxide 21 mmol/L (22-30); Chloride 105 mmol/L (98-107); Glucose 112 mg/dL (74-99); Lipase 152 U/L (23-300); Potassium 4.3 mmol/L (3.5-5.1); Sodium 136 mmol/L (137-145); Total Bilirubin 0.9 mg/dL (0.2-1.3); Total Protein 7.3 g/dL (6.3-8.2)
--- NOTE | 2019-02-28 17:12 | XR ---
EXAMINATION TYPE: XR KUB DATE OF EXAM: 02/28/2019 COMPARISON: 12/20/2018 HISTORY: Vomiting TECHNIQUE: 2 views FINDINGS: Two-view supine were obtained and show no sign of intestinal obstruction or pneumoperitoneu m. Fecal pattern is normal. There is no evidence of a mass. Lung bases are clear. There are no pathologic calcifications over the kidneys. IMPRESSION: Nonacute abdomen. There is clearing of a small infiltrate right lung base compared to old exam..
[2019-03-01] MEDS: FLUoxetine HCL 20 MG CAP PO SCH ×3 (00:22→19:58)
[2019-03-01] MEDS: risperiDONE 1 MG TAB PO SCH ×3 (00:22→19:58)
[2019-03-01 01:09] VITALS: BMI 28.1
--- NOTE | 2019-03-01 10:38 | P.CRDCN ---
History of Present Illness History of present illness: This is a pleasant 58-year-old male past medical history significant for developmental delay since , depression and IBS. He is a poor historian and doesn't answer questions appropriately. Information is obtained from nursing staff and medical record. He apparently lives at a care home and was brought in for an episode of coffee ground emesis. Per the nursing staff he has had 3 bowel movements since arriving in the hospital and all were brown and soft with no evidence of bleeding. He is seen and examined laying flat resting comfortably in bed in no acute distress. His only response throughout the interaction in "no" to all questions. He denies chest pain, shortness of breath, dizziness or palpitations. His history is documented as prior myocardial infarction, however he denies this. There is no documentation of heart disease. EKG obtained on admission reveals sinus tachycardia heart rate 113, ST depression and T-wave abnormalities in the inferior and lateral leads. There is no old for comparison. KUB xray reveals a small infiltrate in the right lung base. Laboratory data reviewed, WBC 10, hgb 14.2, plt 281, sodium 136, potassium 4.3, creatinine 0.88, magnesium 1.9, cardiac enzymes negative 3. Current daily cardiac medications include aspirin 81 mg daily. He also takes Risperdal, Prozac and Bentyl. Lengthy discussion had with his sister, Marj, she states there has never been any heart attack, hospitalizations or stent placement. I have asked to nurse to remove that from his prior history. Unable to obtain an accurate review of systems secondary to mental status. Blood pressure 116/75 heart rate 98 afebrile maintaining oxygen saturation on room air GENERAL: This is a 58-year-old male in no apparent distress at the time of my examination. HEENT: Head is atraumatic, normocephalic. Pupils are equal, round. Sclerae anicteric. Conjunctivae are clear. Mucous membranes of the mouth are moist. Neck is supple. There is no jugular venous distention. No carotid bruit is heard. LUNGS: Clear to auscultation no wheezes, rales or rhonchi. No chest wall tenderness is noted on palpation or with deep breathing. HEART: Regular rate and rhythm without murmurs, rubs or gallops. S1 and S2 heard. ABDOMEN: Soft, nontender. Bowel sounds are heard. No organomegaly noted. EXTREMITIES: No evidence of peripheral edema and no calf tenderness noted. VASCULAR: Radial and dorsalis pedis pulses palpated, no evidence of clubbing. NEUROLOGIC: Patient is awake and alert. ASSESSMENT Abnormal baseline EKG with no symptoms of angina. Cardiac enzymes are negative. Acute GI bleeding, GI has been consulted Developmental delay PLAN An acute event has been ruled out. Obtain 2D echocardiogram and doppler study to assess cardiac structure and function. Ongoing management of GI bleeding per GI team. We will make an appointment for him as an outpatient for further testing if echo is normal. Thank you kindly for this consultation. Nurse Practitioner note has been reviewed, I agree with a documented findings and plan of care. Patient was seen and examined. Past Medical History Past Medical History: Myocardial Infarction ([place]) Additional Past Medical History / Comment(s): [place], Developmental delay since , depression. Pt combative at times.IBS Last Myocardial Infarction Date:: unknown History of Any Multi-Drug Resistant Organisms: None Reported Past Surgical History: No Surgical Hx Reported Additional Past Surgical History / Comment(s): cataract surgery Past Anesthesia/Blood Transfusion Reactions: No Reported Reaction Past Psychological History: Depression Smoking Status: Never smoker Past Alcohol Use History: None Reported Past Drug Use History: None Reported - Past Family History Father History Unknown: Yes Medications and Allergies Home Medications Medication Instructions Recorded Confirmed Type FLUoxetine HCL [PROzac] 20 mg PO HS 06/13/18 02/28/19 History FLUoxetine HCL [PROzac] 40 mg PO DAILY 06/13/18 02/28/19 History risperiDONE 1 mg PO BID 06/13/18 02/28/19 History Aspirin 81 mg PO DAILY 12/20/18 02/28/19 History Dicyclomine [Bentyl] 10 mg PO BID 12/20/18 02/28/19 History Allergies Allergy/AdvReac Type Severity Reaction Status Date / Time No Known Allergies Allergy Verified 02/28/19 15:44 Physical Exam Vitals: Vital Signs Temp Pulse Pulse Resp BP BP Pulse Ox 03/01/19 04:03 98.4 F 77 18 108/65 98 03/01/19 03:10 75 17 03/01/19 00:00 81 18 02/28/19 22:33 97.2 F L 81 18 111/73 98 02/28/19 22:00 97 F L 68 18 108/78 99 02/28/19 18:30 84 20 112/74 02/28/19 18:00 84 18 112/72 02/28/19 17:56 17 02/28/19 17:00 86 18 112/72 02/28/19 16:00 103 H 18 02/28/19 15:22 98.5 F 110 H 18 116/86 99 Intake and Output 02/28/19 03/01/19 03/01/19 22:59 06:59 14:59 Other: Voiding Method Diaper # Voids 1 # Bowel Movements 1 Weight 81.647 kg Results 02/28/19 16:23 02/28/19 16:23 Cardiac Enzymes 02/28/19 02/28/19 02/28/19 Range/Units 16:23 16:23 18:00 AST 30 (17-59) U/L Troponin I <0.012 <0.012 (0.000-0.034) ng/mL 03/01/19 Range/Units 05:52 AST (17-59) U/L Troponin I <0.012 (0.000-0.034) ng/mL Coagulation 02/28/19 Range/Units 16:23 PT 10.5 (9.0-12.0) sec APTT 26.0 (22.0-30.0) sec CBC 02/28/19 Range/Units 16:23 WBC 10.0 (3.8-10.6) k/uL RBC 4.83 (4.30-5.90) m/uL Hgb 14.2 (13.0-17.5) gm/dL Hct 42.7 (39.0-53.0) % Plt Count 281 (150-450) k/uL Comprehensive Metabolic Panel 02/28/19 Range/Units 16:23 Sodium 136 L (137-145) mmol/L Potassium 4.3 (3.5-5.1) mmol/L Chloride 105 (98-107) mmol/L Carbon Dioxide 21 L (22-30) mmol/L BUN 18 (9-20) mg/dL Creatinine 0.88 (0.66-1.25) mg/dL Glucose 112 H (74-99) mg/dL Calcium 9.4 (8.4-10.2) mg/dL AST 30 (17-59) U/L ALT 47 (21-72) U/L Alkaline Phosphatase 91 (38-126) U/L Total Protein 7.3 (6.3-8.2) g/dL Albumin 4.3 (3.5-5.0) g/dL Current Medications Generic Name Dose Route Start Last Admin Trade Name Freq PRN Reason Stop Dose Admin Aspirin 81 mg 03/01/19 09:00 Aspirin PO DAILY ANA MARÍA Dicyclomine HCl 10 mg 03/01/19 09:00 Bentyl PO BID ANA MARÍA Fluoxetine HCl 20 mg 02/28/19 21:45 03/01/19 00:22 Prozac PO 20 mg HS ANA MARÍA Administration Fluoxetine HCl 40 mg 03/01/19 09:00 Prozac PO DAILY ANA MARÍA Risperidone 1 mg 02/28/19 21:45 03/01/19 00:22 Risperdal PO 1 mg BID ANA MARÍA Administration Intake and Output 02/28/19 03/01/19 03/01/19 22:59 06:59 14:59 Other: Voiding Method Diaper # Voids 1 # Bowel Movements 1 Weight 81.647 kg 02/28/19 16:23 02/28/19 16:23
[2019-03-01] MEDS: DICYCLOMINE 10 MG CAP PO SCH ×2 (10:41→19:58)
[2019-03-01] MEDS: ASPIRIN 81 MG PO SCH (10:42)
--- NOTE | 2019-03-01 11:00 | ECHOF ---
Referral Reason:cp MEASUREMENTS -------- HEIGHT: 170.2 cm WEIGHT: 81.6 kg BP: IVSd: 1.5 cm (0.6 - 1.1) LVIDd: 3.0 cm (3.9 - 5.3) LVPWd: 1.5 cm (0.6 - 1.1) IVSs: 1.6 cm LVIDs: 1.3 cm LVPWs: 1.2 cm Ao Diam: 3.6 cm (2.0 - 3.7) AV Cusp: 2.4 cm (1.5 - 2.6) LA Diam: 3.0 cm (2.7 - 3.8) MV EXCURSION: 19.089 mm (> 18.000) MV EF SLOPE: 121 mm/s (70 - 150) EPSS: 0.7 cm MV E Kg: 0.73 m/s MV DecT: 262 ms MV A Kg: 0.93 m/s MV E/A Ratio: 0.78 RAP: 5.00 mmHg RVSP: 13.09 mmHg FINDINGS -------- Sinus rhythm. This was a technically good study. The left ventricular size is normal. There is moderate concentric left ventricular hypertrophy. O verall left ventricular systolic function is normal with, an EF between 55 - 60 %. The right ventricle is normal in size. The left atrial size is normal. The right atrial size is normal. Aortic valve is trileaflet and is mildly thickened. There is trace mitral regurgitation. Trace tricuspid regurgitation present. The right ventricular systolic pressure, as measured by Dopp ler, is 13.09mmHg. There is no pulmonic regurgitation present. The aortic root size is normal. IVC Not well visulized. There is no pericardial effusion. CONCLUSIONS -------- 1. Sinus rhythm. 2. This was a technically good study. 3. The left ventricular size is normal. 4. There is moderate concentric left ventricular hypertrophy. 5. Overall left ventricular systolic function is normal with, an EF between 55 - 60 %. 6. The right ventricle is normal in size. 7. The left atrial size is normal. 8. The right atrial size is normal. 9. Aortic valve is trileaflet and is mildly thickened. 10. There is trace mitral regurgitation. 11. Trace tricuspid regurgitation present. 12. The right ventricular systolic pressure, as measured by Doppler, is 13.09mmHg. 13. There is no pulmonic regurgitation present. 14. The aortic root size is normal. 15. IVC Not well visulized. 16. There is no pericardial effusion. CUSTOMS ENTRY WRITER: Aleida Singh RDCS
--- NOTE | 2019-03-01 11:39 | P.CONS ---
History of Present Illness - Reason for Consult Consult date: 03/01/19 Upper GI bleed Requesting physician: Db Bazzi - Chief Complaint Vomiting coffee-ground emesis - History of Present Illness 58-year-old gentleman admitted with coffee-ground emesis with underlying history of developmental delay. History obtained from medical records nursing staff this patient is not able to provide details. Admission hemoglobin 14.2. INR 1.0. BUN 18. Creatinine 0.8. Troponin 3 less than 0.012. LFTs lipase within normal limits. Home medications baby aspirin Bentyl Prozac risperidone. Previous hemoglobin December 2018 was 13.6. KUB nonacute findings. Review of Systems Obtained from medical records nursing staff Constitutional: Denies fever, chills, sweats, weight gain, or loss. Develo pmental delay. HEENT: Negative for migraines, blurred vision or loss, earaches, drainage, tinnitus, oral mucosal lesions, dysphagia, or odynophagia. Cardiac: Negative for chest pain, arrhythmias, or palpitation. Respiratory: Negative for shortness of breath, hemoptysis, cough, or sputum production. Gastrointestinal: See HPI for pertinent findings. Genitourinary: Negative for hematuria, urgency, frequency, polyuria, dysuria, or penile discharge. Musculoskeletal: Negative for muscle aches, swelling, arthritis, and arthralgias. Neurologic: Negative for stroke or TIA. Endocrine: Negative for thyroid problems. Skin: Negative for rash or itching. Psychiatric: Negative history for depression and anxiety ROS unobtainable: due to mental status Past Medical History Past Medical History: Myocardial Infarction ([place]) Additional Past Medical History / Comment(s): [place], Developmental delay since alexandra h, depression. Pt combative at times.IBS Last Myocardial Infarction Date:: unknown History of Any Multi-Drug Resistant Organisms: None Reported Past Surgical History: No Surgical Hx Reported Additional Past Surgical History / Comment(s): cataract surgery Past Anesthesia/Blood Transfusion Reactions: No Reported Reaction Past Psychological History: Depression Smoking Status: Never smoker Past Alcohol Use History: None Reported Past Drug Use History: None Reported - Past Family History Father History Unknown: Yes Medications and Allergies Home Medications Medication Instructions Recorded Confirmed Type FLUoxetine HCL [PROzac] 20 mg PO HS 06/13/18 02/28/19 History FLUoxetine HCL [PROzac] 40 mg PO DAILY 06/13/18 02/28/19 History risperiDONE 1 mg PO BID 06/13/18 02/28/19 History Aspirin 81 mg PO DAILY 12/20/18 02/28/19 History Dicyclomine [Bentyl] 10 mg PO BID 12/20/18 02/28/19 History Allergies Allergy/AdvReac Type Severity Reaction Status Date / Time No Known Allergies Allergy Verified 02/28/19 15:44 Physical Exam Vitals: Vital Signs Temp Pulse Pulse Resp BP BP Pulse Ox 03/01/19 07:00 97.6 F 90 18 116/75 95 03/01/19 04:03 98.4 F 77 18 108/65 98 03/01/19 03:10 75 17 03/01/19 00:00 81 18 02/28/19 22:33 97.2 F L 81 18 111/73 98 02/28/19 22:00 97 F L 68 18 108/78 99 02/28/19 18:30 84 20 112/74 02/28/19 18:00 84 18 112/72 02/28/19 17:56 17 02/28/19 17:00 86 18 112/72 02/28/19 16:00 103 H 18 02/28/19 15:22 98.5 F 110 H 18 116/86 99 Intake and Output 02/28/19 03/01/19 03/01/19 22:59 06:59 14:59 Other: Voiding Method Diaper Toilet Diaper # Voids 1 1 # Bowel Movements 1 Weight 81.647 kg General appearance: The patient is alert, in no acute distress. HET: Head is normocephalic and atraumatic. Pupils are equal and reactive. Oropharynx is clear without lesions. Neck: Supple without lymphadenopathy. Trachea midline. Heart: S1 S2. Regular rate and rhythm. Lungs: No crackles or wheezes are heard. Abdomen: Soft, nontender, nondistended with bowel sounds. No peritoneal signs. No palpable organomegaly or masses. Extremities: Normal skin color and turgor. No cyanosis, rash, ulceration, clubbing, or edema. Radial and pedal pulses are 2/4 bilaterally. Neurological: No focal deficits. Strength and sensation are grossly intact. Results CBC & Chem 7: 02/28/19 16:23 02/28/19 16:23 Labs: Abnormal Lab Results - Last 24 Hours (Table) 02/28/19 02/28/19 Range/Units 16:23 16:23 Neutrophils # 9.1 H (1.3-7.7) k/uL Lymphocytes # 0.3 L (1.0-4.8) k/uL Sodium 136 L (137-145) mmol/L Carbon Dioxide 21 L (22-30) mmol/L Glucose 112 H (74-99) mg/dL Abdominal x-ray: report reviewed (Dr. Kennedy) Assessment and Plan Assessment: Impression: 1. Acute coffee-ground emesis possible Melyssa-Dickinson tear possible peptic ulcer disease hemoglobin stable 14.2. 2. Developmental delay. Plan: 1. Protonix 40 mg twice daily. CBC monitoring. Full liquids. Inpatient EGD not planned today we'll consider based on clinical course. We'll continue to follow with you. Thank you for this kind referral and the opportunity to participate in the care of your patient. This consultation was discussed with Dr. Kennedy. The impre ssion and plan of care have been directed as dictated.
[2019-03-01] MEDS: PANTOPRAZOLE 40 MG/10 ML VIAL IVP SCH ×2 (12:42→19:58)
--- NOTE | 2019-03-01 17:39 | HP ---
HISTORY AND PHYSICAL DATE OF ADMISSION: 02/28/2019 DATE OF SERVICE: 03/01/2019 PRESENT COMPLAINT: Coffee-ground emesis. HISTORY OF PRESENTING COMPLAINT: This is a 58-year-old patient who follows with visiting physician Dr. Pierce. Chronic stable medical conditions include developmental delay, depression, irritable bowel syndrome. The patient is a poor historian, answers only some simple questions. The patient was brought in from his [place] [facility] facility with coffee-ground emesis. The patient denies any abdominal pain. He had two bowel movements today that were slightly loose, but the patient is able to keep all his liquids down and even had 2 whole pots of coffee per the nurse. He is rather comfortable in the bed. Earlier he was seen by GI, who put the patient on PPIs. Because of some EKG changes, he was seen by Cardiology. We will follow their recommendations. REVIEW OF SYSTEMS: Difficult to obtain because the patient really does not give much of a history; he can say some words here and there. PAST MEDICAL HISTORY: 1. Developmental delay. 2. Depression. 3. Irritable bowel syndrome. PAST SURGICAL HISTORY: Cataract surgery. SOCIAL HISTORY: Lives in a [place] [facility] facility. No smoking or alcohol reported. FAMILY HISTORY: Patient cannot tell. HOME MEDICATIONS: 1. Risperdal 1 mg b.i.d. 2. Prozac 40 mg daily, 20 mg at bedtime. 3. Bentyl 10 mg b.i.d. 4. Aspirin 81 mg p.o. daily. ALLERGIES: NONE. PHYSICAL EXAMINATION: VITAL SIGNS ON PRESENTATION: Temperature 98.5, pulse 110, respiration 18, blood pressure 116/86, pulse ox 99% on room air. GENERAL APPEARANCE: Average build, lying in bed, comfortable. EYES: Pupils equal. Conjunctivae normal. HEENT: External appearance of nose and ears normal. Oral cavity normal. NECK: JVD unable to assess. Mass not palpable. RESPIRATORY: Effort normal. LUNGS: Fair air entry. CARDIOVASCULAR: First and second sounds normal. No edema. ABDOMEN: Soft, non-tender. Liver and spleen not palpable. LYMPHATIC: No lymph node palpable in neck or axillae. PSYCHIATRY: Patient can answer some simple questions with some words. NEUROLOGICAL: Pupils equal. No facial asymmetry. Moving all 4 limbs. INVESTIGATIONS: White count 10, hemoglobin 14.2, potassium 4.3. BUN and creatinine normal. Troponin x3 negative. EKG tracing, personally reviewed by me, shows sinus tachycardia and some ST-segment changes in the lateral leads. KUB x-ray shows nil acute. Two-D echo shows moderate concentric left ventricular hypertrophy, ejection fraction 55% to 60%. ASSESSMENT: 1. Coffee-ground emesis. Could be from gastritis. Peptic ulcer disease in the differential, but patient's abdomen is nontender and he is tolerating a diet. No further episodes. 2. Chronic developmental delay. 3. Irritable bowel syndrome. 4. Abnormal EKG. PLAN: Cardiology consult was noted. Two-D echocardiogram was noted. Patient was put on PPI. Home medications are resumed. Will leave the patient currently on aspirin and repeat patient's hemoglobin in the morning. Currently on full liquid diet. MMODL / IJN: [id number] /
[2019-03-02 06:15] LABS: Basophils % (A) 0 %; Eosinophils # (A) 0.2 k/uL (0-0.7); Eosinophils % (A) 2 %; HCT 37.6 % (39.0-53.0); HGB 12.4 gm/dL (13.0-17.5); Lymphocytes # (A) 0.8 k/uL (1.0-4.8); Lymphocytes % (A) 10 %; MCH 29.1 pg (25.0-35.0); Mean Platelet Volume 7.1; Monocytes # (A) 0.7 k/uL (0-1.0); Monocytes % (A) 8 %; Neutrophils # (A) 6.4 k/uL (1.3-7.7); Neutrophils % (A) 78 %; Platelet Count 263 k/uL (150-450); RBC 4.27 m/uL (4.30-5.90); RDW 13.9 % (11.5-15.5); WBC 8.2 k/uL (3.8-10.6)
[2019-03-02 07:26] VITALS: RESP 18
[2019-03-02] MEDS: DICYCLOMINE 10 MG CAP PO SCH (08:29)
[2019-03-02] MEDS: risperiDONE 1 MG TAB PO SCH (08:29)
[2019-03-02] MEDS: FLUoxetine HCL 20 MG CAP PO SCH (08:29)
[2019-03-02] MEDS: PANTOPRAZOLE 40 MG/10 ML VIAL IVP SCH (08:29)
[2019-03-02] MEDS: ASPIRIN 81 MG PO SCH (08:29)
--- NOTE | 2019-03-02 09:22 | P.PN ---
Subjective Progress Note Date: 03/02/19 Principal diagnosis: Coffee-ground emesis Per nursing no episodes of coffee ground emesis hematemesis or hematochezia since admission. Tolerating full liquids. Afebrile. Hemoglobin 12.4. Objective - Vital Signs Vital signs: Vital Signs Temp 98.6 F 03/02/19 07:00 Pulse 79 03/02/19 07:00 Resp 18 03/02/19 07:00 BP 108/63 03/02/19 07:00 Pulse Ox 94 L 03/02/19 07:00 Intake & Output 03/01/19 03/02/19 03/02/19 18:59 06:59 18:59 Intake Total 860 420 Balance 860 420 Intake: Oral 660 420 Other 200 Other: Voiding Method Toilet Toilet Diaper Diaper # Voids 1 1 # Bowel Movements 1 - Exam General appearance: The patient is alert, in no acute distress. Developmentally delayed. HET: Head is normocephalic and atraumatic. Pupils are equal and reactive. Oropharynx is clear without lesions. Neck: Supple without lymphadenopathy. Trachea midline. Heart: S1 S2. Regular rate and rhythm. Lungs: No crackles or wheezes are heard. Abdomen: Soft, nontender, nondistended with bowel sounds. No peritoneal signs. No palpable organomegaly or masses. Extremities: Normal skin color and turgor. No cyanosis, rash, ulceration, clubbing, or edema. Radial and pedal pulses are 2/4 bilaterally. Neurological: No focal deficits. Strength and sensation are grossly intact. - Labs CBC & Chem 7: 03/02/19 05:55 02/28/19 16:23 Labs: Abnormal Lab Results - Last 24 Hours (Table) 03/02/19 Range/Units 05:55 RBC 4.27 L (4.30-5.90) m/uL Hgb 12.4 L (13.0-17.5) gm/dL Hct 37.6 L (39.0-53.0) % Lymphocytes # 0.8 L (1.0-4.8) k/uL Assessment and Plan Assessment: Impression: 1. Acute coffee-ground emesis possible Melyssa-Dickinson tear possible peptic ulcer disease hemoglobin stable 14.2. 2. Developmental delay. Plan: 1. Continue present medical therapy. Inpatient endoscopic exams not planned at this time. Advance diet as tolerated. Discharge planning per medicine. Continue Protonix 40 mg twice daily. Assessment and plan a care discussed with Dr. Kennedy
[2019-03-02 11:50] VITALS: BP 104/70; PULSE 65; TEMP 98.2
--- NOTE | 2019-03-04 00:18 | DS ---
DISCHARGE SUMMARY DATE OF ADMISSION: 02/28/2019 DATE OF DISCHARGE: 03/02/2019 FINAL DIAGNOSES: 1. Coffee-grounds emesis, possibly from gastritis. 2. Chronic developmental delay. 3. Irritable bowel syndrome. HOSPITAL COURSE: This patient has got developmental delay. Lives in a longterm. Presented with coffee-ground emesis. Seen by GI. PPIs was added to be managed conservatively. Hemoglobin remained stable. No further episodes. Patient is tolerating his diet well. The patient also has nonspecific EKG changes. 2D echocardiogram was unremarkable. No further intervention to be done per Cardiology. PHYSICAL EXAMINATION: Temperature 98.2, pulse 65, respiratory 18, blood pressure 104/70, pulse ox 97% on room air. ABDOMEN: Soft, nontender. LABS: Hemoglobin was 12.4. Troponins were negative. CONSULTATION: Dr. Kennedy from GI, Dr. Moss from Cardiology. DISCHARGE MEDICATIONS: 1. Prozac 20 mg q.h.s. 40 mg a day. 2. Risperidone 1 mg b.i.d. 3. Aspirin 81 mg a day. 4. Bentyl 10 mg b.i.d. 5. Pepcid 20 mg b.i.d. FOLLOW UP: Dr. Pierce in 1-2 days. Follow up with Dr. Moss on March 16, 2019. Copy to visiting physician Dr. Pierce. MMODL / IJN: [id number] /
== END 2019-03-02 15:14 ==
LOC: EC 15:21 → 1SOBS 17:09
PROVIDERS: ADMIT Hospitalist; ATTEND Hospitalist
DX: K92.0 Hematemesis (principal); K58.9 Irritable bowel syndrome, unspecified; R00.0 Tachycardia, unspecified; R91.8 Other nonspecific abnormal finding of lung field; R62.50 Unspecified lack of expected normal physiological development in childhood; F32.9 Major depressive disorder, single episode, unspecified; Z79.82 Long term (current) use of aspirin; Z79.899 Other long term (current) drug therapy; Z98.49 Cataract extraction status, unspecified eye
CPT/HCPCS: 96361 ×3; 96375; 96376 ×2; 96374; 99285; 36415; 93005; 93306; 80053; 83690; 83735; 84484 ×2; 85025 ×2; 85610; 85730; 74018; G0378 ×3; J2405; C9113 ×2

== ENCOUNTER 2019-05-12 21:32 | Inpatient (IN) | payer MEDICARE, OTHER ==
[2019-05-12] MEDS ORDERED: SODIUM CHLORIDE 0.9% 1,000 ML IV STA (22:27)
[2019-05-12 22:40] LABS: Basophils % (A) 0 %; Eosinophils # (A) 0.1 k/uL (0-0.7); Eosinophils % (A) 0 %; HCT 34.1 % (39.0-53.0); HGB 11.8 gm/dL (13.0-17.5); Lymphocytes # (A) 0.7 k/uL (1.0-4.8); Lymphocytes % (A) 5 %; MCH 29.5 pg (25.0-35.0); MCHC 34.5 g/dL (31.0-37.0); MCV 85.5 fL (80.0-100.0); Mean Platelet Volume 7.8; Monocytes # (A) 0.7 k/uL (0-1.0); Monocytes % (A) 5 %; Neutrophils # (A) 12.8 k/uL (1.3-7.7); Neutrophils % (A) 89 %; Platelet Count 247 k/uL (150-450); RBC 3.99 m/uL (4.30-5.90); RDW 14.3 % (11.5-15.5); WBC 14.3 k/uL (3.8-10.6)
[2019-05-12 22:50] LABS: ALT 18 U/L (21-72); AST 23 U/L (17-59); African American GFR (CKD) >90 (>60 ml/min/1.73 sqM); Albumin 3.3 g/dL (3.5-5.0); Alkaline Phosphatase 66 U/L (38-126); Amylase 103 U/L (30-110); Anion Gap 11 mmol/L; Blood Urea Nitrogen 8 mg/dL (9-20); Carbon Dioxide 21 mmol/L (22-30); Chloride 86 mmol/L (98-107); Glucose 125 mg/dL (74-99); Lipase 99 U/L (23-300); Potassium 3.5 mmol/L (3.5-5.1); Total Bilirubin 0.8 mg/dL (0.2-1.3); Total Protein 5.8 g/dL (6.3-8.2)
[2019-05-12 22:53] LABS: Sodium 118 mmol/L (137-145)
--- NOTE | 2019-05-12 23:58 | XR ---
EXAM: XR Abdomen, 1 View CLINICAL HISTORY: ITS.REASON XR Reason: abdominal pain TECHNIQUE: Frontal supine view of the abdomen/pelvis. COMPARISON: Abdominal radiography 02/28/19. FINDINGS: See Impression. IMPRESSION: Gas-filled loops of bowel in the right lower quadrant. This may represent small bowel ileus and less likely early small bowel obstruction. No suspicious calcifications. Limited assessment for free air on supine on the imaging. No other acute disease or unremarkable abnormalities.
[2019-05-13 00:21] LABS: Uric Acid 3.3 mg/dL (3.5-8.5)
[2019-05-13] MEDS: SODIUM CHLORIDE 0.9% 1,000 ML IV SCH ×4 (00:26→23:56)
[2019-05-13 00:52] LABS: Appearance,Urine Clear (Clear); Bilirubin,Urine Negative (Negative); Blood,Urine Negative (Negative); Color,Urine Colorless; Glucose,Urine (UA) Negative (Negative); Ketones,Urine 1+ (Negative); Leukocyte Esterase,Urine Negative (Negative); Nitrite,Urine Negative (Negative); PH, Urine 6.5 (5.0-8.0); Protein,Urine Negative (Negative); Specific Gravity,Urine 1.007 (1.001-1.035); Urobilinogen,Urine <2.0 mg/dL (<2.0)
--- NOTE | 2019-05-13 01:05 | CT ---
EXAM: CT Abdomen and Pelvis With Intravenous Contrast CLINICAL HISTORY: ITS.REASON CT Reason: Pain TECHNIQUE: Axial computed tomography images of the abdomen and pelvis with intravenous contrast. CTDI is 29.60 mGy and DLP is 1296.70 mGy-cm. This CT exam was performed using one or more of the following dose reduction techniques: automated exposure control, adjustment of the mA and/or kV according to patient size, and/or use of iterative reconstruction technique. COMPARISON: No relevant prior studies available. FINDINGS: Artifacts: Motion artifact limits assessment. Lung bases: Unremarkable. No mass. No consolidation. Mediastinum: Small hiatal hernia. ABDOMEN: Liver: See below. Gallbladder and bile ducts: See below. Pancreas: See below. Spleen: See below. Adrenals: Unremarkable. No mass. Kidneys and ureters: See below. Stomach and bowel: Mild stranding involving the left upper abdomen mesentery. Consider mesenteritis or panniculitis. PELVIS: Appendix: No appendicitis, inflammatory changes of bowel or bowel obstruction. Bladder: Distended bladder without wall thickening or surrounding inflammation. Reproductive: Unremarkable as visualized. ABDOMEN and PELVIS: Intraperitoneal space: No free fluid. No free air. Bones/joints: No acute fracture. No dislocation. Soft tissues: Unremarkable. Vasculature: Aorta, liver, spleen, pancreas, gallbladder, and kidneys are unremarkable. No abdominal aortic aneurysm. Lymph nodes: Unremarkable. No enlarged lymph nodes. IMPRESSION: Mild stranding involving the left upper abdomen mesentery. Consider mesenteritis or panniculitis. No other acute or inflammatory disease or bowel obstruction.
[2019-05-13] MEDS ORDERED: NALOXONE 0.4 MG/ML 1 ML VIAL IV PRN (01:54)
[2019-05-13] MEDS ORDERED: ONDANSETRON 4 MG/2 ML VIAL IVP PRN (01:54)
--- NOTE | 2019-05-13 01:54 | ED ---
General Adult HPI - General Source: EMS Mode of arrival: ambulatory Limitations: language barrier, physical limitation <Coby Tarango - Last Filed: 05/13/19 05:00> <Bell Goel - Last Filed: 05/14/19 05:49> - General Chief complaint: Fall Stated complaint: Fall Time Seen by Provider: 05/12/19 22:15 - History of Present Illness Initial comments: 58-year-old male patient with past medical history significant for developmental delay, he is nonverbal, and myocardial infarction presents to the emergency department today for evaluation of weakness and diarrhea. Patient had an episode of diarrhea today and when staff put him in the shower at his adult foster care he fell, seemingly due to weakness. They called ambulance for him to be transferred and in the EMS he had an episode of vomiting. He did receive Zofran via EMS. Patient is not able to continue to history. He is resting comfortably in bed. (Coby Tarango) - Related Data Home Medications Medication Instructions Recorded Confirmed FLUoxetine HCL [PROzac] 20 mg PO HS 06/13/18 05/12/19 FLUoxetine HCL [PROzac] 40 mg PO DAILY 06/13/18 05/12/19 risperiDONE 1 mg PO BID 06/13/18 05/12/19 Dicyclomine [Bentyl] 10 mg PO BID 12/20/18 05/12/19 Ergocalciferol (Vitamin D2) 50,000 unit PO WE 05/12/19 05/12/19 [Vitamin D2] Previous Rx's Medication Instructions Recorded Famotidine [Pepcid] 20 mg PO BID #60 tablet 03/02/19 Allergies Allergy/AdvReac Type Severity Reaction Status Date / Time No Known Allergies Allergy Verified 05/12/19 22:55 Review of Systems ROS Other: All systems not noted in ROS Statement are negative. <Coby Tarango - Last Filed: 05/13/19 05:00> ROS Other: All systems not noted in ROS Statement are negative. <Bell Goel - Last Filed: 05/14/19 05:49> ROS Statement: Those systems with pertinent positive or pertinent negative responses have been documented in the HPI. Past Medical History Past Medical History: Myocardial Infarction ([place]) Additional Past Medical History / Comment(s): [place], Developmental delay since , depression. Pt combative at times.IBS Last Myocardial Infarction Date:: unknown History of Any Multi-Drug Resistant Organisms: None Reported Past Surgical History: No Surgical Hx Reported Additional Past Surgical History / Comment(s): cataract surgery Past Anesthesia/Blood Transfusion Reactions: No Reported Reaction Past Psychological History: Depression Smoking Status: Never smoker Past Alcohol Use History: None Reported Past Drug Use History: None Reported - Past Family History Father History Unknown: Yes <Coby Tarango - Last Filed: 05/13/19 05:00> General Exam Limitations: language barrier, physical limitation General appearance: alert, in no apparent distress, other (Physical well- developed, well-nourished adult male patient in no acute distress. Vital signs upon presentation are temperature 97.4F, pulse 70, respirations 18, blood pressure 91/71, pulse ox 100% on room air.) Eye exam: Present: normal appearance, PERRL, EOMI. Absent: scleral icterus, conjunctival injection, periorbital swelling ENT exam: Present: normal exam, normal oropharynx, mucous membranes moist Respiratory exam: Present: normal lung sounds bilaterally. Absent: respiratory distress, wheezes, rales, rhonchi, stridor Cardiovascular Exam: Present: regular rate, normal rhythm, normal heart sounds. Absent: systolic murmur, diastolic murmur, rubs, gallop, clicks GI/Abdominal exam: Present: soft, normal bowel sounds. Absent: distended, tenderness, guarding, rebound, rigid Neurological exam: Present: alert Psychiatric exam: Present: normal affect, normal mood Skin exam: Present: warm, dry, intact, normal color. Absent: rash <Coby Tarango M - Last Filed: 05/13/19 05:00> Course Vital Signs 05/12/19 05/12/19 05/13/19 21:43 22:18 01:20 Temperature 97.4 F L Pulse Rate 70 72 Respiratory 18 18 Rate Blood Pressure 91/71 103/63 98/83 O2 Sat by Pulse 100 99 Oximetry 05/13/19 05/13/19 01:49 03:16 Temperature 97.8 F Pulse Rate 85 Respiratory 18 Rate Blood Pressure 120/69 109/73 O2 Sat by Pulse 98 Oximetry EKG Findings - EKG Comments: EKG Findings:: EKG obtained at 2310 shows normal sinus rhythm with a ventricular rate is 74, HI interval 174, QRS duration 92, QT 390, QTC 432. No evidence of ST elevation or depression. <Coby Tarango - Last Filed: 05/13/19 05:00> Medical Decision Making - Lab Data Result diagrams: 05/12/19 21:50 05/12/19 21:50 - Radiology Data Radiology results: report reviewed, image reviewed <Coby Tarango - Last Filed: 05/13/19 05:00> - Lab Data Result diagrams: 05/12/19 21:50 05/13/19 16:12 <Bell Goel - Last Filed: 05/14/19 05:49> - Medical Decision Making 58-year-old male patient who has developmental delayed is nonverbal history of myocardial infarction presents to the emergency department today for evaluation after becoming weak and falling at his adult foster care. Physical examination was unremarkable. Abdomen was soft and nontender. Patient is resting comfortably in bed and appeared to be in no acute distress. Labs were obtained and did show elevated white blood cell count of 14.3, hemoglobin 11.8, sodium was 118, lactic acid 2.4. KUB x-ray showed possible early bowel obstruction or ileus. CT of the abdomen and pelvis was obtained and was unremarkable. Sodium correction was calculated and patient was started at 132 mL/h of 0.9 normal saline. Labs were added including serum osmolality which came back at 241, uric acid 3.3, hypothyroid with TSH of 7.070, free T4 0.92. Cortisol 27. I did discuss the case with admitting physician Dr. Zamora. (Coby Tarango) I was available for consultation in the emergency department. The history and physical exam were done by the midlevel provider. I was consulted for this patient's care. I reviewed the case with the midlevel provider and based on their presentation of the patient, I agree with the assessment, medical decision making and plan of care as documented. Chart was dictated using [employer] dictation software. Attempts were made to correct any dictation errors however some typographical errors may persist. (Bell Goel) - Lab Data Lab Results 05/12/19 05/12/19 05/12/19 Range/Units 21:50 21:50 21:50 WBC 14.3 H (3.8-10.6) k/uL RBC 3.99 L (4.30-5.90) m/uL Hgb 11.8 L (13.0-17.5) gm/dL Hct 34.1 L (39.0-53.0) % MCV 85.5 (80.0-100.0) fL MCH 29.5 (25.0-35.0) pg MCHC 34.5 (31.0-37.0) g/dL RDW 14.3 (11.5-15.5) % Plt Count 247 (150-450) k/uL Neutrophils % 89 % Lymphocytes % 5 % Monocytes % 5 % Eosinophils % 0 % Basophils % 0 % Neutrophils # 12.8 H (1.3-7.7) k/uL Lymphocytes # 0.7 L (1.0-4.8) k/uL Monocytes # 0.7 (0-1.0) k/uL Eosinophils # 0.1 (0-0.7) k/uL Basophils # 0.0 (0-0.2) k/uL Sodium 118 L* (137-145) mmol/L Potassium 3.5 (3.5-5.1) mmol/L Chloride 86 L (98-107) mmol/L Carbon Dioxide 21 L (22-30) mmol/L Anion Gap 11 mmol/L BUN 8 L (9-20) mg/dL Creatinine 0.67 (0.66-1.25) mg/dL Est GFR (CKD-EPI)AfAm >90 (>60 ml/min/1.73 sqM) Est GFR (CKD-EPI)NonAf >90 (>60 ml/min/1.73 sqM) Glucose 125 H (74-99) mg/dL Osmolality (280-301) mosm/kg Lactic Ac Sepsis Rflx Plasma Lactic Acid Rashad 2.4 H* (0.7-2.0) mmol/L Uric Acid (3.5-8.5) mg/dL Calcium 8.0 L (8.4-10.2) mg/dL Total Bilirubin 0.8 (0.2-1.3) mg/dL AST 23 (17-59) U/L ALT 18 L (21-72) U/L Alkaline Phosphatase 66 (38-126) U/L Troponin I (0.000-0.034) ng/mL Total Protein 5.8 L (6.3-8.2) g/dL Albumin 3.3 L (3.5-5.0) g/dL Amylase 103 (30-110) U/L Lipase 99 (23-300) U/L TSH (0.465-4.680) mIU/L Free T4 (0.78-2.19) ng/dL Cortisol ug/dL Urine Color Urine Appearance (Clear) Urine pH (5.0-8.0) Ur Specific [place] (1.001-1.035) Urine Protein (Negative) Urine Glucose (UA) (Negative) Urine Ketones (Negative) Urine Blood (Negative) Urine Nitrite (Negative) Urine Bilirubin (Negative) Urine Urobilinogen (<2.0) mg/dL Ur Leukocyte Esterase (Negative) Urine Osmolality (50-1400) mosm/kg 05/12/19 05/12/19 05/12/19 Range/Units 21:50 22:54 23:00 WBC (3.8-10.6) k/uL RBC (4.30-5.90) m/uL Hgb (13.0-17.5) gm/dL Hct (39.0-53.0) % MCV (80.0-100.0) fL MCH (25.0-35.0) pg MCHC (31.0-37.0) g/dL RDW (11.5-15.5) % Plt Count (150-450) k/uL Neutrophils % % Lymphocytes % % Monocytes % % Eosinophils % % Basophils % % Neutrophils # (1.3-7.7) k/uL Lymphocytes # (1.0-4.8) k/uL Monocytes # (0-1.0) k/uL Eosinophils # (0-0.7) k/uL Basophils # (0-0.2) k/uL Sodium (137-145) mmol/L Potassium (3.5-5.1) mmol/L Chloride (98-107) mmol/L Carbon Dioxide (22-30) mmol/L Anion Gap mmol/L BUN (9-20) mg/dL Creatinine (0.66-1.25) mg/dL Est GFR (CKD-EPI)AfAm (>60 ml/min/1.73 sqM) Est GFR (CKD-EPI)NonAf (>60 ml/min/1.73 sqM) Glucose (74-99) mg/dL Osmolality 241 L* (280-301) mosm/kg Lactic Ac Sepsis Rflx Y Plasma Lactic Acid Rashad (0.7-2.0) mmol/L Uric Acid 3.3 L (3.5-8.5) mg/dL Calcium (8.4-10.2) mg/dL Total Bilirubin (0.2-1.3) mg/dL AST (17-59) U/L ALT (21-72) U/L Alkaline Phosphatase (38-126) U/L Troponin I <0.012 (0.000-0.034) ng/mL Total Protein (6.3-8.2) g/dL Albumin (3.5-5.0) g/dL Amylase (30-110) U/L Lipase (23-300) U/L TSH 7.070 H (0.465-4.680) mIU/L Free T4 0.92 (0.78-2.19) ng/dL Cortisol 27 ug/dL Urine Color Urine Appearance (Clear) Urine pH (5.0-8.0) Ur Specific [place] (1.001-1.035) Urine Protein (Negative) Urine Glucose (UA) (Negative) Urine Ketones (Negative) Urine Blood (Negative) Urine Nitrite (Negative) Urine Bilirubin (Negative) Urine Urobilinogen (<2.0) mg/dL Ur Leukocyte Esterase (Negative) Urine Osmolality (50-1400) mosm/kg 05/13/19 05/13/19 05/13/19 Range/Units 00:33 00:33 02:09 WBC (3.8-10.6) k/uL RBC (4.30-5.90) m/uL Hgb (13.0-17.5) gm/dL Hct (39.0-53.0) % MCV (80.0-100.0) fL MCH (25.0-35.0) pg MCHC (31.0-37.0) g/dL RDW (11.5-15.5) % Plt Count (150-450) k/uL Neutrophils % % Lymphocytes % % Monocytes % % Eosinophils % % Basophils % % Neutrophils # (1.3-7.7) k/uL Lymphocytes # (1.0-4.8) k/uL Monocytes # (0-1.0) k/uL Eosinophils # (0-0.7) k/uL Basophils # (0-0.2) k/uL Sodium (137-145) mmol/L Potassium (3.5-5.1) mmol/L Chloride (98-107) mmol/L Carbon Dioxide (22-30) mmol/L Anion Gap mmol/L BUN (9-20) mg/dL Creatinine (0.66-1.25) mg/dL Est GFR (CKD-EPI)AfAm (>60 ml/min/1.73 sqM) Est GFR (CKD-EPI)NonAf (>60 ml/min/1.73 sqM) Glucose (74-99) mg/dL Osmolality (280-301) mosm/kg Lactic Ac Sepsis Rflx Plasma Lactic Acid Rashad 1.6 (0.7-2.0) mmol/L Uric Acid (3.5-8.5) mg/dL Calcium (8.4-10.2) mg/dL Total Bilirubin (0.2-1.3) mg/dL AST (17-59) U/L ALT (21-72) U/L Alkaline Phosphatase (38-126) U/L Troponin I (0.000-0.034) ng/mL Total Protein (6.3-8.2) g/dL Albumin (3.5-5.0) g/dL Amylase (30-110) U/L Lipase (23-300) U/L TSH (0.465-4.680) mIU/L Free T4 (0.78-2.19) ng/dL Cortisol ug/dL Urine Color Colorless Urine Appearance Clear (Clear) Urine pH 6.5 (5.0-8.0) Ur Specific [place] 1.007 (1.001-1.035) Urine Protein Negative (Negative) Urine Glucose (UA) Negative (Negative) Urine Ketones 1+ H (Negative) Urine Blood Negative (Negative) Urine Nitrite Negative (Negative) Urine Bilirubin Negative (Negative) Urine Urobilinogen <2.0 (<2.0) mg/dL Ur Leukocyte Esterase Negative (Negative) Urine Osmolality 188 (50-1400) mosm/kg 05/13/19 Range/Units 02:09 WBC (3.8-10.6) k/uL RBC (4.30-5.90) m/uL Hgb (13.0-17.5) gm/dL Hct (39.0-53.0) % MCV (80.0-100.0) fL MCH (25.0-35.0) pg MCHC (31.0-37.0) g/dL RDW (11.5-15.5) % Plt Count (150-450) k/uL Neutrophils % % Lymphocytes % % Monocytes % % Eosinophils % % Basophils % % Neutrophils # (1.3-7.7) k/uL Lymphocytes # (1.0-4.8) k/uL Monocytes # (0-1.0) k/uL Eosinophils # (0-0.7) k/uL Basophils # (0-0.2) k/uL Sodium 122 L (137-145) mmol/L Potassium 3.5 (3.5-5.1) mmol/L Chloride 89 L (98-107) mmol/L Carbon Dioxide 20 L (22-30) mmol/L Anion Gap 13 mmol/L BUN 6 L (9-20) mg/dL Creatinine 0.65 L (0.66-1.25) mg/dL Est GFR (CKD-EPI)AfAm >90 (>60 ml/min/1.73 sqM) Est GFR (CKD-EPI)NonAf >90 (>60 ml/min/1.73 sqM) Glucose 120 H (74-99) mg/dL Osmolality (280-301) mosm/kg Lactic Ac Sepsis Rflx Plasma Lactic Acid Rashad (0.7-2.0) mmol/L Uric Acid (3.5-8.5) mg/dL Calcium 8.2 L (8.4-10.2) mg/dL Total Bilirubin (0.2-1.3) mg/dL AST (17-59) U/L ALT (21-72) U/L Alkaline Phosphatase (38-126) U/L Troponin I (0.000-0.034) ng/mL Total Protein (6.3-8.2) g/dL Albumin (3.5-5.0) g/dL Amylase (30-110) U/L Lipase (23-300) U/L TSH (0.465-4.680) mIU/L Free T4 (0.78-2.19) ng/dL Cortisol ug/dL Urine Color Urine Appearance (Clear) Urine pH (5.0-8.0) Ur Specific [place] (1.001-1.035) Urine Protein (Negative) Urine Glucose (UA) (Negative) Urine Ketones (Negative) Urine Blood (Negative) Urine Nitrite (Negative) Urine Bilirubin (Negative) Urine Urobilinogen (<2.0) mg/dL Ur Leukocyte Esterase (Negative) Urine Osmolality (50-1400) mosm/kg - Radiology Data CT abdomen and pelvis was obtained with contrast. Report was reviewed in its entirety. Impression by Dr. Pratt shows mild stranding involving the left upper abdominal mesentery. Consider mesentery this her panniculitis. No other acute inflammatory disease or polyps structure. X-ray of the abdomen was obtained. Report was reviewed in its entirety. Impression by Dr. Pratt shows gas filled loops of bowel the right lower quadrant. This may represent small bowel ileus and less likely early small bowel ob struction. No suspicious calcifications. Limited assessment for free air. No other acute disease are unremarkable abnormalities. (Coby Tarango) Disposition Decision to Admit Reason: Admit from EC Decision Date: 05/13/19 Decision Time: 01:53 <Coby Tarango - Last Filed: 05/13/19 05:00> <Bell Goel - Last Filed: 05/14/19 05:49> Clinical Impression: Hyponatremia, Weakness Disposition: ADMITTED IP TO THIS [facility] Condition: Serious
[2019-05-13 02:01] LABS: T4, Free (Free Thyroxine) 0.92 ng/dL (0.78-2.19)
--- NOTE | 2019-05-13 06:22 | P.HPIM ---
History of Present Illness H&P Date: 05/13/19 Chief Complaint: generalized weakness, diarrhea 58 y old male Nonverbal with developmental delays history of coronary artery disease [facility] a [facility] he was sent in here to the hospital due to generalized weakness. Patient unable to provide any meaningful history which was obtained by reviewing medical records. Seems like patient was having diarrhea at the longterm while they were cleaning him up in the bathroom he had a fall due to generalized weakness for which they called an ambulance and sent him to the hospital this like in the Route he had an episode of vomiting no report of coffee-ground vomiting or any bloody vomiting. In the ED he was found to be in hypothyroidism along with hyponatremia patient was currently asymptomatic. And was admitted for further care Review of Systems Unable to obtain meaningful review of systems patient is nonverbal Past Medical History Past Medical History: Myocardial Infarction (OK) Additional Past Medical History / Comment(s): OK, Developmental delay since , depression. Pt combative at times.IBS Last Myocardial Infarction Date:: unknown History of Any Multi-Drug Resistant Organisms: None Reported Past Surgical History: No Surgical Hx Reported Additional Past Surgical History / Comment(s): cataract surgery Past Anesthesia/Blood Transfusion Reactions: No Reported Reaction Past Psychological History: Depression Smoking Status: Never smoker Past Alcohol Use History: None Reported Past Drug Use History: None Reported - Past Family History Father History Unknown: Yes Family Medical History: Unable to Obtain Medications and Allergies Home Medications Medication Instructions Recorded Confirmed Type FLUoxetine HCL [PROzac] 20 mg PO HS 06/13/18 05/12/19 History FLUoxetine HCL [PROzac] 40 mg PO DAILY 06/13/18 05/12/19 History risperiDONE 1 mg PO BID 06/13/18 05/12/19 History Dicyclomine [Bentyl] 10 mg PO BID 12/20/18 05/12/19 History Famotidine [Pepcid] 20 mg PO BID #60 tablet 03/02/19 05/12/19 Rx Ergocalciferol (Vitamin D2) 50,000 unit PO WE 05/12/19 05/12/19 History [Vitamin D2] Allergies Allergy/AdvReac Type Severity Reaction Status Date / Time No Known Allergies Allergy Verified 05/12/19 22:55 Physical Exam Vitals: Vital Signs Temp Pulse Resp BP Pulse Ox 05/13/19 03:16 97.8 F 85 18 109/73 98 05/13/19 01:49 120/69 05/13/19 01:20 72 18 98/83 99 05/12/19 22:18 103/63 05/12/19 21:43 97.4 F L 70 18 91/71 100 Intake and Output 05/12/19 05/12/19 05/13/19 14:59 22:59 06:59 Other: Weight 81.647 kg 69.5 kg Patient doesn't cooperate much with physical exam which was limited at this time Constitutional: No acute distress, patient is calm at this time, nonverbal Eyes: Anicteric sclerae, moist conjunctiva, Pupils equal round reactive to light ENMT: NC/AT Oropharynx clear, no erythema, or exudates Neck: Supple, FROM, no masses, or JVD No carotid bruits No thyromegaly Lungs: Clear to auscultation Clear to percussion Normal respiratory effort, no accessory muscle use Cardiovascular: Heart regular in rate and rhythm, No murmurs, gallops, or rubs No peripheral edema Abdominal: Soft Nontender, no guarding, rebound or rigidity Abdomen moving with respiration Normoactive bowel sounds No palpable organomegaly Skin: Normal temperature, tone, texture, turgor No induration No subcutaneous nodules No rash, lesions No ulcers Extremities: No digital cyanosis No clubbing Pedal pulses intact and symmetrical Radial pulses intact and symmetrical No calf tenderness Psychiatric: Patient seems to be alert otherwise unable to assess patient is nonverbal with developmental delays Neuro patient unable to cooperate Lymphatics: no palpable cervical or supraclavicular , or inguinal lymph nodes Results CBC & Chem 7: 05/12/19 21:50 05/12/19 21:50 Labs: Abnormal Lab Results - Last 24 Hours (Table) 05/12/19 05/12/19 05/12/19 Range/Units 21:50 21:50 21:50 WBC 14.3 H (3.8-10.6) k/uL RBC 3.99 L (4.30-5.90) m/uL Hgb 11.8 L (13.0-17.5) gm/dL Hct 34.1 L (39.0-53.0) % Neutrophils # 12.8 H (1.3-7.7) k/uL Lymphocytes # 0.7 L (1.0-4.8) k/uL Sodium 118 L* (137-145) mmol/L Chloride 86 L (98-107) mmol/L Carbon Dioxide 21 L (22-30) mmol/L BUN 8 L (9-20) mg/dL Glucose 125 H (74-99) mg/dL Osmolality (280-301) mosm/kg Plasma Lactic Acid Rashad 2.4 H* (0.7-2.0) mmol/L Uric Acid (3.5-8.5) mg/dL Calcium 8.0 L (8.4-10.2) mg/dL ALT 18 L (21-72) U/L Total Protein 5.8 L (6.3-8.2) g/dL Albumin 3.3 L (3.5-5.0) g/dL TSH (0.465-4.680) mIU/L Urine Ketones (Negative) 05/12/19 05/13/19 Range/Units 23:00 00:33 WBC (3.8-10.6) k/uL RBC (4.30-5.90) m/uL Hgb (13.0-17.5) gm/dL Hct (39.0-53.0) % Neutrophils # (1.3-7.7) k/uL Lymphocytes # (1.0-4.8) k/uL Sodium (137-145) mmol/L Chloride (98-107) mmol/L Carbon Dioxide (22-30) mmol/L BUN (9-20) mg/dL Glucose (74-99) mg/dL Osmolality 241 L* (280-301) mosm/kg Plasma Lactic Acid Rashad (0.7-2.0) mmol/L Uric Acid 3.3 L (3.5-8.5) mg/dL Calcium (8.4-10.2) mg/dL ALT (21-72) U/L Total Protein (6.3-8.2) g/dL Albumin (3.5-5.0) g/dL TSH 7.070 H (0.465-4.680) mIU/L Urine Ketones 1+ H (Negative) Assessment and Plan Assessment: 58-year-old male with developmental delays, nonverbal. skilled nursing resident admitted as an inpatient with anticipated length of stay more than 48 hours due to hyponatremia with generalized weakness no reported seizures patient was having episodes of diarrhea and vomiting nor reports of bleeding. Also found to have hypothyroidism which was admitted for further care Plan: hypovolemic Hyponatremia with generalized weakness Gastroenteritis with diarrhea and vomiting , r/o C diff Hypothyroidism leukocytosis , CT suggestive of mesenteritis, patient asymptomatic plan IVF hydration , close monitoring of electrolytes nephro consult if sodium does not start improving with normal saline start levothyroxine and adjust q 4 weeks to target dose 112 neurochecks fall precautions check for c diff chronic conditions developmental delay non verbal Anemia , Hgb around baseline DVT PPX heparin sc tid Preformed a thorough record review from recent hospitalization recent hospitalization for GI bleeding , and hyponatremia CODE STATUS:full code Discussed with: Patient, ER Anticipated discharge: 48-[address]: [facility] A total of 60 minutes was spent on the care of this complex patient more than 50% of the time was spent in counseling and care coordination.
[2019-05-13 06:33] LABS: African American GFR (CKD) >90 (>60 ml/min/1.73 sqM); Anion Gap 13 mmol/L; Blood Urea Nitrogen 6 mg/dL (9-20); Calcium 8.2 mg/dL (8.4-10.2); Carbon Dioxide 20 mmol/L (22-30); Chloride 89 mmol/L (98-107); Glucose 120 mg/dL (74-99); Potassium 3.5 mmol/L (3.5-5.1); Sodium 122 mmol/L (137-145)
[2019-05-13] MEDS: LEVOTHYROXINE 50 MCG TAB PO SCH (06:41)
[2019-05-13] MEDS: risperiDONE 1 MG TAB PO SCH ×2 (07:57→23:56)
[2019-05-13] MEDS: FLUoxetine HCL 20 MG CAP PO SCH ×2 (07:57→23:56)
[2019-05-13] MEDS: HEPARIN SODIUM,PORCINE 5,000 UNIT/ML 1 ML VIAL SQ SCH ×3 (07:58→23:57)
[2019-05-13] MEDS: FAMOTIDINE 20 MG TAB PO SCH ×2 (07:58→23:56)
[2019-05-13 08:27] LABS: African American GFR (CKD) >90 (>60 ml/min/1.73 sqM); Anion Gap 12 mmol/L; Blood Urea Nitrogen 7 mg/dL (9-20); Calcium 7.8 mg/dL (8.4-10.2); Carbon Dioxide 20 mmol/L (22-30); Chloride 89 mmol/L (98-107); Glucose 179 mg/dL (74-99); Potassium 3.6 mmol/L (3.5-5.1); Sodium 121 mmol/L (137-145)
--- NOTE | 2019-05-13 10:36 | P.PN ---
Progress Note - Text Progress Note Date: 05/13/19 58-year-old male with PMH of developmental delays, nonverbal, CAD presents the ED after a mechanical fall due to generalized weakness. From ED reports, patient had been experiencing diarrhea. In the ED, he was found to be hyponatremic along with hypothyroidism. Patient was admitted for further care. Patient was seen and examined. No acute events overnight. Patient is nonverbal, sitter at bedside, appears to be comfortable. Patient is in no acute distress. Hypovolemic hyponatremia causing generalized weakness Gastroenteritis Hypothyroidism Leukocytosis Lactic acidosis Sodium improved from 118 on admission to 121 this morning. Serum osmolality 241. Hypovolemic hypotonic hyponatremia. Plans: Continue normal saline at 130 mL per hour. Fall and seizure precautions. Neurochecks. BMP every 4 hours. Plans: Zofran as needed for nausea and vomiting. Follow C. diff. TSH 7.07, free T4 within normal limits. Plans: Initiate Synthroid 50 g daily. Will need repeat TSH and free T4 in 4 weeks. Leukocytosis of 14.3 with neutrophilia. Patient is afebrile. Likely secondary to gastroenteritis. Plans: Repeat CBC. Lactic acid 2.4-1.6. Likely secondary to dehydration. Plans: Continue IVF. Patient admitted for hyponatremia, improving. BMP check every 4 hours. Patient is pending clinical improvement. Likely DC in 1-2 days.
[2019-05-13 12:00] LABS: African American GFR (CKD) >90 (>60 ml/min/1.73 sqM); Anion Gap 8 mmol/L; Blood Urea Nitrogen 7 mg/dL (9-20); Calcium 8.2 mg/dL (8.4-10.2); Carbon Dioxide 23 mmol/L (22-30); Chloride 94 mmol/L (98-107); Glucose 109 mg/dL (74-99); Potassium 3.6 mmol/L (3.5-5.1); Sodium 125 mmol/L (137-145)
[2019-05-13 16:38] LABS: African American GFR (CKD) >90 (>60 ml/min/1.73 sqM); Anion Gap 9 mmol/L; Blood Urea Nitrogen 4 mg/dL (9-20); Calcium 8.3 mg/dL (8.4-10.2); Carbon Dioxide 24 mmol/L (22-30); Chloride 97 mmol/L (98-107); Glucose 94 mg/dL (74-99); Sodium 130 mmol/L (137-145)
[2019-05-14] MEDS: LEVOTHYROXINE 50 MCG TAB PO SCH (06:52)
[2019-05-14] MEDS: FAMOTIDINE 20 MG TAB PO SCH ×2 (09:50→22:08)
[2019-05-14] MEDS: risperiDONE 1 MG TAB PO SCH ×2 (09:51→22:02)
[2019-05-14] MEDS: FLUoxetine HCL 20 MG CAP PO SCH ×2 (09:51→22:08)
[2019-05-14] MEDS: HEPARIN SODIUM,PORCINE 5,000 UNIT/ML 1 ML VIAL SQ SCH ×3 (09:51→22:09)
[2019-05-14] MEDS: SODIUM CHLORIDE 0.9% 1,000 ML IV SCH ×3 (09:54→22:09)
[2019-05-14] MEDS: SODIUM CHLORIDE TAB 1 GM TAB PO SCH ×2 (16:09→22:08)
--- NOTE | 2019-05-14 20:08 | P.PN ---
Progress Note - Text Progress Note Date: 05/14/19 Presenting complaint: Low sodium (Interval history: This is a patient from a nursing home, presented with diarrhea vomiting, weakness with a fall. Found to be severely hyponatremic, with hyperosmolality. Today-had all his meals. Speaks single words denies any pain. Laying in bed. Did get IV fluids. Review of systems: Was attempted for constitutional, cardiovascular, GI, pulmonary. relevant finding as above Current medications reviewed that included: Prozac, Synthroid, Risperdal, normal saline On examination: VITAL SIGNS: [98.1, 62, 18, 117/73, 99% room air] GENERAL APPEARANCE: Average build. Lying in bed, not in distress. HEENT: Normal external appearance of nose and ear. Oral cavity normal EYES: Pupils equal. Conjunctiva normal. NECK: JVD not raised. Mass not palpable. RESPIRATORY: Respiratory effort normal. Lungs clear to auscultation. CARDIOVASCULAR: First and second sounds normal. No edema. ABDOMEN: Soft. Liver and spleen not palpable. No tenderness. No mass palpable. PSYCHIATRY: Unable to assess, does speak and occasional word. NEUROLOGICA; follow simple commands.. Investigations, reviewed in the clinical context: Sodium 130, potassium 4, Assessment: -Hypoosmolar, hyponatremia -Metabolic acidosis now improved -Essential hypertension -Developmental delay since -Irritable bowel syndrome -Depression not otherwise specified Plan: Patient is overall improving. Sodium is coming up. Oral intake is good. Repeat sodium in the morning." Can be hopefully be discharged.
[2019-05-15] MEDS: SODIUM CHLORIDE 0.9% 1,000 ML IV SCH ×2 (05:39→13:33)
[2019-05-15] MEDS: LEVOTHYROXINE 50 MCG TAB PO SCH (05:39)
[2019-05-15] MEDS: FLUoxetine HCL 20 MG CAP PO SCH (07:09)
[2019-05-15] MEDS: HEPARIN SODIUM,PORCINE 5,000 UNIT/ML 1 ML VIAL SQ SCH ×2 (07:09→15:10)
[2019-05-15] MEDS: risperiDONE 1 MG TAB PO SCH (07:09)
[2019-05-15] MEDS: SODIUM CHLORIDE TAB 1 GM TAB PO SCH ×2 (07:09→15:12)
[2019-05-15] MEDS: FAMOTIDINE 20 MG TAB PO SCH (07:09)
[2019-05-15 11:33] LABS: African American GFR (CKD) >90 (>60 ml/min/1.73 sqM); Anion Gap 6 mmol/L; Blood Urea Nitrogen 5 mg/dL (9-20); Calcium 8.8 mg/dL (8.4-10.2); Carbon Dioxide 28 mmol/L (22-30); Chloride 102 mmol/L (98-107); Glucose 105 mg/dL (74-99); Potassium 3.8 mmol/L (3.5-5.1); Sodium 136 mmol/L (137-145)
[2019-05-15 12:33] LABS: Glucose,Whole Blood 160 mg/dL (75-99)
[2019-05-15 14:24] VITALS: BP 154/70; PULSE 77; RESP 16; TEMP 98.2
== END 2019-05-15 19:08 | disposition home or self-care (01) | DRG 641 ==
LOC: EC 21:32 → 3SCARD 05-13 02:57 → 4MS4W 05-14 20:48
PROVIDERS: ADMIT Hospitalist; ATTEND Hospitalist
DX: E87.1 Hypo-osmolality and hyponatremia (principal); E87.2 Acidosis; E86.1 Hypovolemia; E86.0 Dehydration; I10 Essential (primary) hypertension; K58.9 Irritable bowel syndrome, unspecified; K52.9 Noninfective gastroenteritis and colitis, unspecified; E03.9 Hypothyroidism, unspecified; D64.9 Anemia, unspecified; F89 Unspecified disorder of psychological development; I25.2 Old myocardial infarction; F32.9 Major depressive disorder, single episode, unspecified; I25.10 Atherosclerotic heart disease of native coronary artery without angina pectoris; Z79.899 Other long term (current) drug therapy; Z98.49 Cataract extraction status, unspecified eye; Z87.19 Personal history of other diseases of the digestive system; W18.2XXA Fall in (into) shower or empty bathtub, initial encounter; Y93.E1 Activity, personal bathing and showering
CPT/HCPCS: 36415; 74018; 74177; 80048; 80053; 81003; 82150; 82310; 82533; 83605; 83690; 83930; 83935; 84133; 84439; 84443; 84484; 84550; 84560; 85025; 87040; 93005; 96360; 99285

== ENCOUNTER → 2025-03-11 | Outpatient (CLI) | payer MEDICARE, OTHER ==
--- NOTE | 2025-03-11 15:24 | FL ---
Exam Date: 03/11/2025 12:38 PM. Modified barium swallow for dysphagia. Consistencies administered: Various consistency of barium. Fluoro time: 1 minute 52 seconds No images were sent to PACS. Please see speech pathology report. DAP: Not recorded [id number] Gycm2 [facility], , 03/11/2025 3:22 PM
== END | disposition home or self-care (01) ==
LOC: RADFLMAIN 11:44
PROVIDERS: ATTEND General Practice
DX: R13.10 Dysphagia, unspecified (principal)
CPT/HCPCS: 74230

== ENCOUNTER → 2025-04-27 | Outpatient (CLI) | payer MEDICARE, OTHER ==
--- NOTE | 2025-04-27 13:27 | MR ---
MRI brain without contrast. CLINICAL INDICATION: Male, 64 years old with history of F03.90 UNSP DEMENTIA, UNSP SEVERITY, WITHOUT BEH/P, Persistent headaches. COMPARISON: None. TECHNIQUE: Multiecho multiplanar images the brain were obtained without contrast. FINDINGS: On the T1-weighted sagittal images, the midline structures including the craniovertebral junction rel ationships are normal. The ventricles, basal cisterns and sulci over the convexities moderately to markedly enlarged consist ent with moderate to marked atrophy. There is mild multifocal abnormal increased signal intensity in the periventricular white matter cons istent with mild chronic ischemic white matter demyelination. On the diffusion-weighted images, there is no diffusion restriction or acute ischemic event. On the susceptibility weighted images there is no microhemorrhage. The posterior fossa including the brainstem, fourth ventricle and cerebellopontine angles are normal. The intraorbital contents are normal and symmetric. Visualized paranasal sinuses and mastoid air cells are well aerated. IMPRESSION: 1. Moderate to marked atrophy. 2. No mass affect or shift of midline structures. 3. Mild chronic ischemic white matter change. 4. No acute ischemic event [facility], , 04/27/2025 1:25 PM
== END | disposition home or self-care (01) ==
LOC: RADMRIMAIN 04-03 13:34
PROVIDERS: ATTEND Psychiatry & Neurology Neurology
DX: Z53.9 Procedure and treatment not carried out, unspecified reason (principal)
CPT/HCPCS: 70551